=== PATIENT | female | born 1935 | race Caucasian/White ===

== ENCOUNTER 2023-07-28 13:41 | Outpatient (OUT) | payer MEDICARE, BC, SELFPAY ==
--- NOTE | 2023-07-28 14:30 | CA_ITS ---
Patient: RUTHANN MARISCAL Exam Date: 07/28/2023 : 1935 Gender:F Ordering : DR Daiana Palmer M.D. Admission #: [id number] Family : Order #: [id number] CLICK HERE TO VIEW EXAM ECHOCARDIOGRAM REPORT PROCEDURE: CA ECHO DOPPLER COMPLETE INDICATIONS: Edema, former smoker COMPARISON: None. DESCRIPTION: COMPLETE ECHOCARDIOGRAM Real-time transthoracic echocardiography with 2D, M-mode, spectral and color flow Doppler performed. QUALITY: Technically difficult due to patients condition. 55 175# LEFT VENTRICLE: Normal chamber size. Normal left ventricular wall thickness. Normal systolic function. LV EF: Normal left ventricular ejection fraction, (55%). DIASTOLIC: Grade II diastolic dysfunction. ATRIAL SEPTUM: Visually appears intact. LEFT ATRIUM: Moderate dilatation. RIGHT ATRIUM: Normal chamber size. RIGHT VENTRICLE: Normal chamber size. Normal right ventricular systolic function. TRICUSPID VALVE: Normal mobility and thickness. No stenosis with trivial regurgitation. Unable to assess right-sided pressures due to lack of measurable tricuspid regurgitation. MITRAL VALVE: Mildly thickened with normal mobility. No evidence of mitral valve stenosis. Mild mitral annular calcification. Mild mitral regurgitation. AORTIC VALVE: Normal trileaflet appearance. Moderately calcified aortic valve. Mildly diminished mobility. Doppler velocity suggest moderate aortic valve stenosis. DVI 0.3, MICHAEL 1.0 cm2, mean gradient 17 mmHg. No aortic regurgitation. AORTIC ROOT: Normal diameter and appearance. PULMONIC VALVE: Not well visualized. No stenosis. No regurgitation. PERICARDIUM: Anterior free space, effusion versus fat pad. IVC: IVC is normal in size with no inspiratory collapse. PLEURA: CONCLUSION: 1. Normal ventricular systolic function. LVEF is 55%. 2. Grade 2 diastolic dysfunction. 3. Moderate aortic valve stenosis. 4. Mild mitral regurgitation. 5. Anterior free space, infusion versus fat pad. 6. Technically difficult study with poor sound transmission. Adult Echocardiography Procedure Report Left Ventricle LVEDD (3.7 - 5.6 cm): 4.88 cm LVESD (2.2 - 4.0 cm): 3.03 cm LVIVS thickness (0.6 - 1.2 cm): 0.95 cm LVPW thickness (0.5 - 1.0 cm): 0.86 cm e': 0.05 m/s E - e': 21.76 LVOT Max Gradient: 3.65 mm[Hg], 3.21 mm[Hg] LVOT Area (cm2): 0.90 m/s, 0.95 m/s Peak Velocity (LVOT): 0.90 m/s, 0.95 m/s Mean Velocity (LVOT): 0.62 m/s LVOT Diameter 1.82 cm Left Atrium LA Volume Index (2D A2C): 46.91 ml/m2 Left Atrium Systolic Dimension: 3.30 cm Mitral Valve MV E to A Ratio: 1.06 Mitral Valve A-Wave Peak Velocity: 1.04 m/s Mitral Valve E-Wave Peak Velocity: 1.11 m/s Right Ventricle Aorta AO Root Diam: 2.88 cm Ascending Ao Diam: 2.90 cm Aortic Valve AoV Area (Peak Ritesh): 0.84 cm2, 0.84 cm2, 0.90 cm2, 0.90 cm2 AoV Area (VTI): 1.03 cm2, 1.03 cm2 Peak Velocity(Antegrade Flow): 2.77 m/s Peak Gradient(Antegrade Flow): 30.60 mm[Hg] Mean Velocity(Antegrade Flow): 1.97 m/s Mean Gradient(Antegrade Flow): 17.03 mm[Hg] Velocity Time Integral: 62.57 cm Tricuspid Valve Pulmonic Valve Peak Velocity: 0.84 m/s Peak Gradient: 2.82 mm[Hg] Right Atrium Dictated by: Reed Braxton M.D. on 07/28/2023 at 19:00 Approved by: Reed Braxton M.D. on 07/28/2023 at 19:06
[2023-07-28 14:37] LABS: Basophils Absolute Auto 0.1 10^3/uL (0.0-0.1); Basophils Percent Auto 0.7 % (0.2-2.0); Eosinophils Absolute Auto 0.5 10^3/uL (0.0-0.7); Eosinophils Percent Auto 5.2 % (0.9-7.0); Hematocrit 39.8 % (36.0-48.0); Hemoglobin 12.7 g/dL (12.0-16.0); Immature Granulocytes Abs Auto 0.03 10^3/uL (0.00-0.03); Immature Granulocytes Pct Auto 0.3 % (0.0-0.5); Lymphocytes Absolute Auto 1.9 10^3/uL (1.2-3.8); Lymphocytes Percent Auto 19.8 % (20.5-60.0); Mean Corpuscular HGB Conc 31.9 g/dL (29.9-35.2); Mean Corpuscular Hemoglobin 30.2 pg (26.7-34.0); Mean Corpuscular Volume 94.8 fL (81.0-99.0); Mean Platelet Volume 9.8 fL (9.5-13.5); Monocytes Absolute Auto 0.6 10^3/uL (0.3-0.8); Monocytes Percent Auto 6.1 % (1.7-12.0); Neutrophils Absolute Auto 6.6 10^3/uL (1.4-6.5); Neutrophils Percent Auto 67.9 % (43.0-75.0); Platelet Count 278 10^3/uL (150-450); Red Cell Distribution Width 13.7 % (11.0-15.0); White Blood Count 9.7 10^3/uL (4.0-11.0)
[2023-07-28 14:55] LABS: Estimated Average Glucose 169 mg/dL; Glycohemoglobin A1C 7.5 % (4.5-6.2)
[2023-07-28 15:10] LABS: Anion Gap 4.3; BUN Creatinine Ratio 21.2; Calcium 8.3 mg/dL (8.5-10.1); Carbon Dioxide 36.8 mmol/L (21.0-32.0); Chloride 104 mmol/L (98-107); Estimated GFR (African America >60 (>=60); Estimated GFR (Non-African Ame >60 (>=60); Glucose 137 mg/dL (74-106); Potassium 4.1 mmol/L (3.5-5.1); Sodium 141 mmol/L (136-145); Thyroid Stimulating Hormone 1.262 uIU/mL (0.358-3.740)
== END 2023-07-28 13:42 | disposition home or self-care (01) ==
LOC: CARD 13:41
PROVIDERS: PCP Family Medicine; Visit Provider Family Medicine
DX: E11.65 Type 2 diabetes mellitus with hyperglycemia (principal); R60.0 Localized edema; I51.89 Other ill-defined heart diseases; I08.0 Rheumatic disorders of both mitral and aortic valves
CPT/HCPCS: 36415; 80048; 83036; 84443; 85025; 93306

== ENCOUNTER 2023-08-18 14:20 | Inpatient (IN) | payer MEDICARE, BC, SELFPAY ==
[2023-08-18] VITALS (48 sets, daily range): BP systolic 118–200; BP diastolic 51–120; PULSE 65–92; RESP 7–28; TEMP 36.5; O2SAT 87–98; BMI 44.2; BMI 40.1
--- NOTE | 2023-08-18 14:23 | ECG_ITS ---
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
--- NOTE | 2023-08-18 14:30 | ED.CHESTPAI1 ---
HPI - Chest Pain General Chief Complaint: Shortness of Breath/Dyspnea Stated Complaint: CHEST PAIN, LOW OXYGEN Time Seen by Provider: 08/18/23 14:23 History of Present Illness HPI narrative: patient is in 87-year-old female to history of chronic obstructive pulmonary disease who presents to the emergency department from her welfare worker office. Patient was noted to have oxygen at eighty-six percent on room air in the office, she was being seen for routine chronic obstructive pulmonary disease follow-up. She does not wear home oxygen. Her welfare worker, Dr. Weber, was concerned about complaint of upper abdominal/lower chest pain in a bandlike distribution across the lower ribs that has been present intermittently for several months. Patient denies fevers, vomiting, diarrhea. She has had an increase in swelling to her lower extremities for the last several weeks, she was recently taken off of her metformin by her PCP for this. No medications given prior to arrival. She was referred to the Emergency Room to rule out PE. Related Data Allergies Allergy/AdvReac Type Severity Reaction Status Date / Time No Known Drug Allergies Allergy Verified 08/18/23 14:33 Review of Systems ROS Constitutional Denies: fever or chills Ears, nose, mouth, and throat Denies: throat pain or neck pain Cardiovascular Reports: chest pain and swelling of feet/ankles Respiratory Reports: shortness of breath and cough Gastrointestinal Denies: nausea or vomiting Musculoskeletal Denies: back pain Integumentary/Breast Denies: rash Neurological Denies: headache Hematologic/Lymphatic Denies: easy bruising PFSH PFSH Social History Smoking status: Former smoker Exam Narrative Exam Narrative: Gen.: Awake, alert, in no distress Head: Normocephalic, atraumatic ENT: Moist mucous membranes Respiratory: No respiratory distress, lungs diminished globally Cardio: Regular rate and rhythm Gastrointestinal: Abdomen is soft, nondistended and nontender to palpation Extremities: Moves extremities equally, 1+ pitting edema to the bilateral lower extremities Psych: Normal mood and affect Neuro: No focal neuro deficit Skin: Warm, dry, intact Constitutional Vital Signs, click to edit/add: Last Vital Signs Temp 97.7 F 08/18/23 14:26 Pulse 81 08/18/23 16:37 Resp 23 08/18/23 16:37 BP 140/70 08/18/23 16:31 Pulse Ox 96 08/18/23 16:40 O2 Del Method Nasal Cannula 08/18/23 16:40 O2 Flow Rate 3 08/18/23 16:40 Course Vital Signs Vital signs: Vital Signs Temperature 97.7 F 08/18/23 14:26 Pulse Rate 91 H 08/18/23 14:26 Respiratory Rate 22 08/18/23 14:26 Blood Pressure 172/90 H 08/18/23 14:26 Pulse Oximetry 87 L 08/18/23 14:26 Oxygen Delivery Method Room Air 08/18/23 14:26 Temperature 97.7 F 08/18/23 14:26 Pulse Rate 81 08/18/23 16:37 Respiratory Rate 23 08/18/23 16:37 Blood Pressure 140/70 08/18/23 16:31 Pulse Oximetry 96 08/18/23 16:40 Oxygen Delivery Method Nasal Cannula 08/18/23 16:40 Oxygen Delivery Flow Rate 3 08/18/23 16:40 MDM - Chest Pain MDM Narrative Medical decision making narrative: patient was treated with morphine, Zofran, aspirin in the Emergency Room. No significant EKG changes noted. Lab studies including BNP, troponin are within normal limits. Patient was sent for CT angiogram of the chest with no evidence of PE. Discussed these results with the patient, discussed the need for ambulation with pulse oximetry to determine if she can safely be discharged home. Patient was removed from oxygen by nasal cannula, she was only able to ambulate one to two steps before her oxygen levels dropped to 78% on room air. She will be admitted to hospitalist for chronic obstructive pulmonary disease exacerbation. Solu-Medrol and breathing treatment given prior to admission. Blood pressure has improved. Medical Records Data Attestation: I reviewed the patient's medical records. Lab Data Attestation: I reviewed the patient's lab results. Labs: Lab Results 08/18/23 Range/Units 14:37 WBC 11.1 H (4.0-11.0) 10^3/uL RBC 4.47 (4.20-5.40) 10^6/uL Hgb 13.5 (12.0-16.0) g/dL Hct 41.7 (36.0-48.0) % MCV 93.3 (81.0-99.0) fL MCH 30.2 (26.7-34.0) pg MCHC 32.4 (29.9-35.2) g/dL RDW 13.5 (11.0-15.0) % Plt Count 270 (150-450) 10^3/uL MPV 10.1 (9.5-13.5) fL Neut % (Auto) 69.9 (43.0-75.0) % Lymph % (Auto) 18.5 L (20.5-60.0) % [place] % (Auto) 6.4 (1.7-12.0) % Eos % (Auto) 4.4 (0.9-7.0) % Baso % (Auto) 0.5 (0.2-2.0) % Neut # (Auto) 7.7 H (1.4-6.5) 10^3/uL Lymph # (Auto) 2.1 (1.2-3.8) 10^3/uL [place] # (Auto) 0.7 (0.3-0.8) 10^3/uL Eos # (Auto) 0.5 (0.0-0.7) 10^3/uL Baso # (Auto) 0.1 (0.0-0.1) 10^3/uL Abs Immat Gran (auto) 0.03 (0.00-0.03) 10^3/uL Imm/Tot Granulo (auto) 0.3 (0.0-0.5) % PT 9.8 (9.0-11.6) sec INR <0.93 APTT 24.4 (22.3-36.2) sec Sodium 140 (136-145) mmol/L Potassium 3.9 (3.5-5.1) mmol/L Chloride 102 (98-107) mmol/L Carbon Dioxide 34.0 H (21.0-32.0) mmol/L Anion Gap 7.9 BUN 17.0 (7.0-18.0) mg/dL Creatinine 0.88 (0.55-1.02) mg/dL Est GFR ( Amer) >60 (>=60) Est GFR (Non-Af Amer) >60 (>=60) BUN/Creatinine Ratio 19.3 Glucose 142 H (74-106) mg/dL Calcium 8.6 (8.5-10.1) mg/dL Total Bilirubin 0.6 (0.2-1.0) mg/dL AST 15 (15-37) U/L ALT 17 (14-59) U/L Alkaline Phosphatase 105 (46-116) U/L Troponin I High Sens 26.8 (4.0-51.3) pg/mL NT-Pro-B Natriuret Pep 325.0 (<=1800.0) pg/mL Total Protein 7.3 (6.4-8.2) g/dL Albumin 3.6 (3.4-5.0) g/dL Globulin 3.7 g/dL Albumin/Globulin Ratio 1.0 Amylase 14 L (25-115) U/L Lipase 21.0 (16.0-77.0) U/L Imaging Data CT scan - chest: Attestation: I have reviewed the pertinent imaging results. Radiologist's impression: Procedure: CT angio chest CT angio chest, 08/18/2023 3:20 PM EDT INDICATION: Hypoxia, chest pain, PE COMPARISON: Prior CT of the chest dated 01/09/2021 TECHNIQUE: Axial low-dose images of 1 millimeters are obtained from the thoracic outlet with contrast . 3-D MIP images were obtained. Dose reduction techniques were achieved by using automated exposure control and/or adjustment of mA and/or kV according to patient size and/or use of iterative reconstruction technique. FINDINGS: No endoluminal filling defect within the main pulmonary arteries, lobar and lobular branches is noted. There is no obvious right ventricle strain. There is no suspicious lung lesion. Bilateral dependent atelectasis is noted. Bilateral consolidation likely linear atelectasis. The central tracheobronchial tree is unremarkable. No mediastinal lymph node enlargement by size criteria is noted. No pleural or pericardial effusion is noted. The visualized portions of the solid abdominal organs are unremarkable. Bone: There is no suspicious osteolytic or osteoblastic lesion. IMPRESSION: No pulmonary embolus in the current study. Bilateral linear opacities in the bases likely atelectasis. Follow-up CT in 6 and is recommended to ensure stability. Electronically authenticated by: ASHOK RODRIGUEZ Date: 08/18/2023 15:48 ECG Data Attestation: I personally reviewed and interpreted this ECG as follows: (normal sinus rhythm at a rate of seventy-four, no acute ST elevation, no ectopy. EKG reviewed by attending physician) ECG interpretation date: 08/18/23 ECG interpretation time: 14:34 Discharge Plan Discharge Chief Complaint: Shortness of Breath/Dyspnea Patient Disposition: Admitted as Observation Time of Disposition Decision: 16:48 Referrals: Daiana Palmer MD [Primary Care Provider] - 1 week
[2023-08-18 14:46] LABS: Basophils Absolute Auto 0.1 10^3/uL (0.0-0.1); Basophils Percent Auto 0.5 % (0.2-2.0); Eosinophils Absolute Auto 0.5 10^3/uL (0.0-0.7); Eosinophils Percent Auto 4.4 % (0.9-7.0); Hematocrit 41.7 % (36.0-48.0); Hemoglobin 13.5 g/dL (12.0-16.0); Immature Granulocytes Abs Auto 0.03 10^3/uL (0.00-0.03); Immature Granulocytes Pct Auto 0.3 % (0.0-0.5); Lymphocytes Absolute Auto 2.1 10^3/uL (1.2-3.8); Lymphocytes Percent Auto 18.5 % (20.5-60.0); Mean Corpuscular HGB Conc 32.4 g/dL (29.9-35.2); Mean Corpuscular Hemoglobin 30.2 pg (26.7-34.0); Mean Corpuscular Volume 93.3 fL (81.0-99.0); Mean Platelet Volume 10.1 fL (9.5-13.5); Monocytes Absolute Auto 0.7 10^3/uL (0.3-0.8); Monocytes Percent Auto 6.4 % (1.7-12.0); Neutrophils Absolute Auto 7.7 10^3/uL (1.4-6.5); Neutrophils Percent Auto 69.9 % (43.0-75.0); Platelet Count 270 10^3/uL (150-450); Red Blood Count 4.47 10^6/uL (4.20-5.40); Red Cell Distribution Width 13.5 % (11.0-15.0); White Blood Count 11.1 10^3/uL (4.0-11.0)
[2023-08-18 15:01] LABS: Amylase 14 U/L (25-115)
[2023-08-18 15:03] LABS: Partial Thromboplastin Time 24.4 sec (22.3-36.2); Prothrombin Time 9.8 sec (9.0-11.6)
[2023-08-18 15:06] LABS: INR <0.93
[2023-08-18 15:10] LABS: Alanine Aminotransferase 17 U/L (14-59); Albumin Level 3.6 g/dL (3.4-5.0); Alkaline Phosphatase 105 U/L (46-116); Anion Gap 7.9; Aspartate Amino Transferase 15 U/L (15-37); BUN Creatinine Ratio 19.3; Bilirubin Total 0.6 mg/dL (0.2-1.0); Calcium 8.6 mg/dL (8.5-10.1); Chloride 102 mmol/L (98-107); Estimated GFR (African America >60 (>=60); Estimated GFR (Non-African Ame >60 (>=60); Globulin 3.7 g/dL; Glucose 142 mg/dL (74-106); Potassium 3.9 mmol/L (3.5-5.1); Sodium 140 mmol/L (136-145); Total Protein 7.3 g/dL (6.4-8.2); Troponin I High Sensitivity 26.8 pg/mL (4.0-51.3)
[2023-08-18] MEDS: MORPHINE SULFATE 2 MG/ML SYRINGE IV (15:14)
[2023-08-18] MEDS: ONDANSETRON PF 4 MG/2 ML VIAL IV (15:14)
[2023-08-18] MEDS: ASPIRIN 81 MG TAB.CHEW 162 MG PO (15:14)
--- NOTE | 2023-08-18 15:36 | CT_ITS ---
The [address] [address] Patient Name: RUTHANN MARISCAL MRN: [id number] date: 1935 Sex: F Assigned Patient Location: ER Current Patient Location: ER Accession/Order Number: [id number] Exam Date: 08/18/2023 15:20 Report Date: 08/18/2023 15:48 At the request of: JEANETTE PETER Procedure: CT angio chest CT angio chest, 08/18/2023 3:20 PM EDT INDICATION: Hypoxia, chest pain, PE COMPARISON: Prior CT of the chest dated 01/09/2021 TECHNIQUE: Axial low-dose images of 1 millimeters are obtained from the thoracic outlet with contrast . 3-D MIP images were obtained. Dose reduction techniques were achieved by using automated exposure control and/or adjustment of mA and/or kV according to patient size and/or use of iterative reconstruction technique. FINDINGS: No endoluminal filling defect within the main pulmonary arteries, lobar and lobular branches is noted. There is no obvious right ventricle strain. There is no suspicious lung lesion. Bilateral dependent atelectasis is noted. Bilateral consolidation likely linear atelectasis. The central tracheobronchial tree is unremarkable. No mediastinal lymph node enlargement by size criteria is noted. No pleural or pericardial effusion is noted. The visualized portions of the solid abdominal organs are unremarkable. Bone: There is no suspicious osteolytic or osteoblastic lesion. CT/CT angio chest IMPRESSION: No pulmonary embolus in the current study. Bilateral linear opacities in the bases likely atelectasis. Follow-up CT in 6 and is recommended to ensure stability. Electronically authenticated by: ASHOK RODRIGUEZ Date: 08/18/2023 15:48
[2023-08-18] MEDS: ALBUTEROL SULFATE 2.5 MG/3 ML VIAL NEB IH (16:37)
[2023-08-18] MEDS: METHYLPREDNISOLONE SOD SUCC PF 125 MG/2 ML VIAL IVP (16:45)
[2023-08-18] MEDS: ENOXAPARIN SODIUM 30 MG/0.3 ML SYRINGE SUBQ (21:10)
[2023-08-18] MEDS: NABUMETONE 500 MG TABLET 750 MG PO (21:12)
[2023-08-18] MEDS: DOXEPIN HCL 25 MG CAPSULE 100 MG PO (21:14)
[2023-08-18] MEDS: METHYLPREDNISOLONE SOD SUCC PF 125 MG/2 ML VIAL 60 MG IVP (21:15)
[2023-08-18] MEDS: PRAMIPEXOLE 1 MG TABLET 0.5 MG PO (21:16)
[2023-08-18 21:22] LABS: Glucometer 297 mg/dL (74-106)
[2023-08-18] MEDS: INSULIN ASPART 300 UNIT/3 ML PEN SUBQ (21:23)
[2023-08-18] MEDS: IPRATROPIUM/ALBUTEROL SULFATE 3 ML AMPUL.NEB IH (23:19)
[2023-08-19] VITALS (62 sets, daily range): BP systolic 112–157; BP diastolic 54–88; PULSE 70–106; RESP 14–20; TEMP 36.4–37.1; O2SAT 83–96
[2023-08-19 04:09] LABS: Basophils Percent Auto 0.2 % (0.2-2.0); Hemoglobin 13.3 g/dL (12.0-16.0); Immature Granulocytes Abs Auto 0.05 10^3/uL (0.00-0.03); Immature Granulocytes Pct Auto 0.5 % (0.0-0.5); Lymphocytes Absolute Auto 0.5 10^3/uL (1.2-3.8); Lymphocytes Percent Auto 5.4 % (20.5-60.0); Mean Corpuscular HGB Conc 31.7 g/dL (29.9-35.2); Mean Corpuscular Volume 94.6 fL (81.0-99.0); Mean Platelet Volume 10.3 fL (9.5-13.5); Monocytes Percent Auto 0.3 % (1.7-12.0); Neutrophils Absolute Auto 9.2 10^3/uL (1.4-6.5); Neutrophils Percent Auto 93.6 % (43.0-75.0); Platelet Count 254 10^3/uL (150-450); Red Blood Count 4.44 10^6/uL (4.20-5.40); Red Cell Distribution Width 13.4 % (11.0-15.0); White Blood Count 9.8 10^3/uL (4.0-11.0)
[2023-08-19 04:17] LABS: Anion Gap 6.8; BUN Creatinine Ratio 19.2; Calcium 8.5 mg/dL (8.5-10.1); Carbon Dioxide 34.5 mmol/L (21.0-32.0); Chloride 99 mmol/L (98-107); Estimated GFR (African America >60 (>=60); Estimated GFR (Non-African Ame 53 (>=60); Glucose 255 mg/dL (74-106); Potassium 4.3 mmol/L (3.5-5.1); Sodium 136 mmol/L (136-145)
[2023-08-19] MEDS: METHYLPREDNISOLONE SOD SUCC PF 125 MG/2 ML VIAL 60 MG IVP ×4 (04:18→21:09)
[2023-08-19] MEDS: IPRATROPIUM/ALBUTEROL SULFATE 3 ML AMPUL.NEB IH ×5 (07:18→23:39)
[2023-08-19 08:35] LABS: Glucometer 333 mg/dL (74-106)
[2023-08-19] MEDS: ATORVASTATIN CALCIUM 10 MG TABLET PO (08:52)
[2023-08-19] MEDS: DULOXETINE HCL 30 MG CAPSULE.DR PO (08:52)
[2023-08-19] MEDS: NABUMETONE 500 MG TABLET 750 MG PO ×2 (08:52→21:06)
[2023-08-19] MEDS: FUROSEMIDE 40 MG TABLET PO (08:53)
[2023-08-19] MEDS: DOXEPIN HCL 25 MG CAPSULE 50 MG PO (08:53)
[2023-08-19] MEDS: INSULIN ASPART 300 UNIT/3 ML PEN SUBQ ×5 (08:55→21:12)
--- NOTE | 2023-08-19 11:02 | RESP.RT ---
titrated down to 2L
--- NOTE | 2023-08-19 11:14 | PM.HP ---
H&P: HPI History of Present Illness Chief complaint: SOB, hypoxia Narrative: 87 y/o female with history of COPD to ER with SOB. C/o worsening SOB over past few days. Chest tight and hard to take deep breath. Mild cough. Afebrile. Seen by pulmologist and found SpO2 87% on room air and sent to ER. Placed on oxygen and given steroids and breathing treatments. Labs and UA normal. Chest x-ray negative. [place] better and attempted to ambulate on room air and SpO2 dropped to 78% and admitted. Started steroids and breathing treatments. Developed worsening hypoxia and up to 4 LPM this am. Feels better but still SOB and fatigue with exertion. Review of Systems ROS Constitutional Denies: fever, chills or night sweats Cardiovascular Denies: chest pain, palpitations or edema Respiratory Reports: shortness of breath, cough and wheezing Gastrointestinal Denies: abdominal pain, nausea, vomiting or diarrhea Genitourinary Denies: painful urination [facility] Medical History (Updated 08/18/23 @ 18:47 by Coco Smith) COPD (chronic obstructive pulmonary disease) ?J44.9 - Chronic obstructive pulmonary disease, unspecified (ICD-10) Hypoxia ?R09.02 - Hypoxemia (ICD-10) Neuropathy ?G62.9 - Polyneuropathy, unspecified (ICD-10) Surgical History (Updated 08/18/23 @ 18:36 by Coco Smith) H/O: hysterectomy ?Z90.710 - Acquired absence of both cervix and uterus (ICD-10) History of bladder suspension procedure ?Z98.890 - Other specified postprocedural states (ICD-10) ?Z87.448 - Personal history of other diseases of urinary system (ICD-10) Social History (Updated 08/18/23 @ 18:36 by Coco Smith) Within the past year, how often did you have a drink containing alcohol: monthly or less Smoking status: Former smoker Meds Home Medications and Allergies Home Medications Medication Instructions Recorded Confirmed Type albuterol sulfate 90 mcg/actuation 1 inh inhalation DAILY 08/18/23 08/18/23 History aerosol inhaler (Ventolin HFA) atorvastatin 10 mg tablet 10 mg PO DAILY 08/18/23 08/18/23 History doxepin 50 mg capsule 50 mg PO DAILY 08/18/23 08/18/23 History doxepin 50 mg capsule 100 mg PO .QHS 08/18/23 08/18/23 History duloxetine 30 mg capsule,delayed 30 mg PO DAILY 08/18/23 08/18/23 History release furosemide 40 mg tablet 40 mg PO DAILY 08/18/23 08/18/23 History nabumetone 750 mg tablet 750 mg PO BID 08/18/23 08/18/23 History pramipexole 0.5 mg tablet 0.5 mg PO .QHS 08/18/23 08/18/23 History Allergies Allergy/AdvReac Type Severity Reaction Status Date / Time No Known Drug Allergies Allergy Verified 08/18/23 14:33 Exam Constitutional Vital Signs, click to edit/add: Last Vital Signs Temp 97.5 F L 08/19/23 08:48 Pulse 98 H 08/19/23 10:57 Resp 20 08/19/23 04:00 BP 157/72 H 08/19/23 08:29 Pulse Ox 96 08/19/23 10:57 O2 Del Method Nasal Cannula 08/19/23 10:57 O2 Flow Rate 3 08/19/23 10:57 Documenting provider has reviewed patient's vital signs: yes Common normals: no apparent distress, oriented x3 and alert HENMT Common normals: normocephalic Eye Common normals: PERRL and EOMs intact bilaterally Respiratory Common normals: normal respiratory effort Auscultation: wheezes expiratory wheezes and diminished lung sounds Cardio Common normals: regular rate, regular rhythm, no gallops, no clicks and no rub GI Common normals: Normal to inspection, nondistended, normoactive bowel sounds present and non-tender Extremity Common normals: normal to inspection Results Labs Labs: Short CBC 08/18/23 08/19/23 Range/Units 14:37 03:59 WBC 11.1 H 9.8 (4.0-11.0) 10^3/uL Hgb 13.5 13.3 (12.0-16.0) g/dL Hct 41.7 42.0 (36.0-48.0) % Plt Count 270 254 (150-450) 10^3/uL BMP 08/18/23 08/19/23 14:37 03:59 Sodium 140 136 Potassium 3.9 4.3 Chloride 102 99 Carbon Dioxide 34.0 H 34.5 H BUN 17.0 19.0 H Creatinine 0.88 0.99 Glucose 142 H 255 H Calcium 8.6 8.5 Liver Function 08/18/23 Range/Units 14:37 Total Bilirubin 0.6 (0.2-1.0) mg/dL AST 15 (15-37) U/L ALT 17 (14-59) U/L Alkaline Phosphatase 105 (46-116) U/L Albumin 3.6 (3.4-5.0) g/dL Pulse Oximetry Attestation: I have reviewed the pertinent pulse oximetry results. Imaging Chest x-ray: Attestation: I have reviewed the pertinent imaging results. Assessment and Plan Assessment and Plan (1) Acute exacerbation of chronic obstructive pulmonary disease: (2) Acute hypoxic respiratory failure: (3) Type 2 diabetes mellitus with hyperglycemia: (4) Chronic heart failure with preserved ejection fraction: (5) Aortic stenosis: (6) Morbid obesity: Plan Continue antibiotics and breathing treatments. Wean O2 as tolerated. Start PT/OT for weakness. Will need at least 2 midnights in the hospital. Resume home medication.
--- NOTE | 2023-08-19 11:30 | CM.NOTE ---
Rounds made with Dr. Kerns, no discharge for pt today. PT and OT will evaluate pt. Changed pt to inpt status.
[2023-08-19 11:43] LABS: Glucometer 450 mg/dL (74-106)
--- NOTE | 2023-08-19 12:19 | CM.NOTE ---
Important Message From Medicare discussed with pt, pt verbalizes understanding and signs paper. Original given to pt and copy placed on pt's chart.
--- NOTE | 2023-08-19 13:44 | SWNOTE1 ---
SW met with pt to discuss dc needs. Pt does live at home with her son. He does still work, but he does all the hard work outside. Pt voiced she does still drive and is out and about. Pt has a cane, but does not always use it. Pt has a few steps in various places throughout the home. Pt voiced she has fallen a few times, but she has neuropathy as well. Pt does not wear home oxygen. SW and pt talked about working with therapy. Pt felt she did alright. SW let her know home health was recommended. Pt shook her head no and voiced she does not feel she needs it at this time. Pt voiced she does stay fairly active. At this time pt refusing HH. SW to follow as needed.
[2023-08-19 16:02] LABS: Glucometer 318 mg/dL (74-106)
[2023-08-19] MEDS: DOXEPIN HCL 25 MG CAPSULE 100 MG PO (21:05)
[2023-08-19] MEDS: PRAMIPEXOLE 1 MG TABLET 0.5 MG PO (21:07)
[2023-08-19] MEDS: ENOXAPARIN SODIUM 30 MG/0.3 ML SYRINGE SUBQ (21:08)
[2023-08-19 21:12] LABS: Glucometer 260 mg/dL (74-106)
[2023-08-20] VITALS (41 sets, daily range): BP systolic 130–141; BP diastolic 57–78; PULSE 88–96; RESP 14–20; TEMP 36.5–36.8; O2SAT 81–98
[2023-08-20 05:16] LABS: Basophils Percent Auto 0.1 % (0.2-2.0); Hematocrit 38.7 % (36.0-48.0); Immature Granulocytes Abs Auto 0.17 10^3/uL (0.00-0.03); Immature Granulocytes Pct Auto 0.8 % (0.0-0.5); Lymphocytes Absolute Auto 0.6 10^3/uL (1.2-3.8); Lymphocytes Percent Auto 2.7 % (20.5-60.0); Mean Corpuscular Hemoglobin 29.6 pg (26.7-34.0); Mean Corpuscular Volume 95.3 fL (81.0-99.0); Mean Platelet Volume 10.6 fL (9.5-13.5); Monocytes Absolute Auto 0.4 10^3/uL (0.3-0.8); Monocytes Percent Auto 1.9 % (1.7-12.0); Neutrophils Absolute Auto 20.2 10^3/uL (1.4-6.5); Neutrophils Percent Auto 94.5 % (43.0-75.0); Platelet Count 249 10^3/uL (150-450); Red Blood Count 4.06 10^6/uL (4.20-5.40); Red Cell Distribution Width 13.7 % (11.0-15.0); White Blood Count 21.4 10^3/uL (4.0-11.0)
[2023-08-20 05:31] LABS: Anion Gap 5.8; BUN Creatinine Ratio 26.8; Calcium 8.6 mg/dL (8.5-10.1); Carbon Dioxide 34.6 mmol/L (21.0-32.0); Chloride 99 mmol/L (98-107); Estimated GFR (African America 56 (>=60); Estimated GFR (Non-African Ame 46 (>=60); Glucose 265 mg/dL (74-106); Potassium 4.4 mmol/L (3.5-5.1); Sodium 135 mmol/L (136-145)
[2023-08-20] MEDS: METHYLPREDNISOLONE SOD SUCC PF 125 MG/2 ML VIAL 60 MG IVP (06:16)
[2023-08-20 08:33] LABS: Glucometer 229 mg/dL (74-106)
[2023-08-20] MEDS: AZITHROMYCIN 250 MG TABLET PO (09:14)
[2023-08-20] MEDS: DULOXETINE HCL 30 MG CAPSULE.DR PO (09:14)
[2023-08-20] MEDS: DOXEPIN HCL 25 MG CAPSULE 50 MG PO (09:14)
[2023-08-20] MEDS: INSULIN DETEMIR 300 UNIT/3 ML INSULN.PEN 15 UNIT SUBQ (09:14)
[2023-08-20] MEDS: ATORVASTATIN CALCIUM 10 MG TABLET PO (09:14)
[2023-08-20] MEDS: INSULIN ASPART 300 UNIT/3 ML PEN SUBQ ×4 (09:18→22:08)
[2023-08-20] MEDS: GUAIFENESIN 600 MG TAB.ER.12H PO ×2 (09:19→22:01)
[2023-08-20] MEDS: IPRATROPIUM/ALBUTEROL SULFATE 3 ML AMPUL.NEB IH ×4 (10:51→22:53)
--- NOTE | 2023-08-20 11:13 | PT.DAILY ---
Physical Therapy Daily Note PT Daily Note/Assess Start: 08/20/23 11:03 Freq: Status: Active Protocol: Document 08/20/23 11:03 JOSE (Rec: 08/20/23 11:08 [id number] Physical Therapy Daily Note/Assessment Time In/Time Out Time In 10:30 Time Out 10:45 Pain In Pain N/A Pain Out Pain N/A Subjective Subjective Pt supine upon arrival. Agrees to PT. Denies pain currently. Therapeutic Exercise Time Therapeutic Exercise Minutes (minutes) 3 Therapeutic Exercise Units 0 Therapeutic Exercise Treatment Therapeutic Exercise Treatment Seated AP, LAQ, and marches ( small range) 10x ea while sitting EOB. Therapeutic Activity Time Therapeutic Activity Minutes (minutes) 10 Therapeutic Activity Units 1 Therapeutic Activity Treatment Bed Mobility Ability Moderate Assist Therapeutic Activity Comments Pt requires ModA to reach sitting from supine - for both LEs and upper body. Once sitting EOB pt able to maintain static sitting balance unsupported for nearly 8 min. While sitting EOB pt performs seated LE ex 10x ea without LOB. Pt also attempts to help scoot her hips up towards head of bed - unable to does move hands and legs appropriately but is lacking strength. Pt requires ModA to transfer from sit>supine for upper body and legs. Pt Unable to assist to help scoot up bed - total assist for this. Pt remains supine with HOB elevated, pillow under legs and call light in reach. Total Physical Therapy Time Total Therapy Minutes 13 Total Physical Therapy Units 1 Summary Daily Note Summary Improved static/dynamic seated balance on this date. Edit Result 08/20/23 11:03 JOSE (Rec: 08/20/23 11:10 [facility] [id number] Physical Therapy Daily Note/Assessment Time In/Time Out Time In 10:01 Time Out 10:11 Subjective Subjective Pt sitting EOB upon arrival. agrees to PT. Therapeutic Activity Treatment Bed Mobility Ability Chair Transfer Ability Standby Assistance Therapeutic Activity Comments Performs 5x Sit>stand from EOB to RW without fatigue. Amb with RW 100' SBA with assist for O2 lines. Sit>supine SBA. Remains supine with call light in reach and needs met. Summary Daily Note Summary Pt goals met on this date. Planned dc to home. Edit Result 08/20/23 11:03 JOSE (Rec: 08/20/23 11:11 JOSE [id number]) Physical Therapy Daily Note/Assessment Therapeutic Activity Time Therapeutic Activity Minutes (minutes) 7 Total Physical Therapy Time Total Therapy Minutes 10
[2023-08-20] MEDS: PREDNISONE 20 MG TABLET 40 MG PO (11:36)
[2023-08-20] MEDS: FUROSEMIDE 40 MG/4 ML VIAL IVP (11:37)
[2023-08-20 11:46] LABS: Glucometer 277 mg/dL (74-106)
--- NOTE | 2023-08-20 12:20 | PM.IMPN1 ---
Progress Note: A&P Assessment and Plan (1) Respiratory failure with hypoxia: Assessment and Plan: Continues to be hypoxic. 80% on RA. Reponds well to O2 supplementation via NC. No resp distress noted. (2) Acute on chronic diastolic (congestive) heart failure: Assessment and Plan: Appears to have mild volume overload. Start on IV lasix 40 mg daily. Monitor I/O, daily weights. 2D ECHO 08/08 - shows diastolic dysfunction, mod . (3) Acute exacerbation of chronic obstructive pulmonary disease: Assessment and Plan: No wheezing today. No formal diagnosis of COPD. C/w duonebs, azithromycin and switch to PO prednisone due to hyperglycemia (4) Type 2 diabetes mellitus with hyperglycemia: Assessment and Plan: Poorly controlled due to systemic steroids. Added lantus 15 units. C/w sliding scale insulin. On oral hypoglycemic as outpatient. (5) Aortic stenosis: Assessment and Plan: Moderate on 2D ECHO alongwith diastolic HF. Being diuresed for acute on chronic diastolic HF. (6) Morbid obesity: Assessment and Plan: Morbidly obese. She will benefit from weight loss. Defer to PCP (7) Leukocytosis: Assessment and Plan: Suspect this is due to systemic steroids. No evidence of PNA on CXR Repeat CXR tomorrow morning. Monitor CBC Internal Medicine - PN: Subj Subjective Interval history: Seen and examined. Reports feeling better subjectively but still hypoxic and requiring O2. No overnight events Exam Constitutional Vital Signs, click to edit/add: Last Vital Signs Temp 98.2 F 08/20/23 04:10 Pulse 88 08/20/23 04:10 Resp 14 08/20/23 04:10 BP 130/78 08/20/23 04:10 Pulse Ox 95 08/20/23 10:55 O2 Del Method Nasal Cannula 08/20/23 10:55 O2 Flow Rate 3 08/20/23 10:55 Documenting provider has reviewed patient's vital signs: yes Common normals: no apparent distress and oriented x3 Nutritional appearance: obese HENMT Common normals: normocephalic and head/scalp atraumatic Head and scalp: normocephalic and atraumatic Eye Common normals: conjunctivae normal and no scleral icterus Conjunctiva: conjunctiva(e) normal Respiratory Common normals: normal respiratory effort Effort & inspection: able to speak in complete sentences Auscultation: crackles Laterality: bilateral in the lower lung [place] Cardio Common normals: regular rate, S1 normal heart sound and S2 normal heart sound Rate: regular rate Heart sounds: S1 normal and S2 normal GI Common normals: Normal to inspection, nondistended, normoactive bowel sounds present, soft to palpation, non-tender and no hepatosplenomegaly Palpation: soft and no hepatosplenomegaly Extremity General: edema (+1 b/l ) Neuro Common normals: oriented x3, moves all extremities and no focal motor deficits Psych Common normals: mental status grossly normal, denies hallucinations, denies homicidal ideation and denies suicidal ideation Internal Medicine - PN: Obj Da Labs Labs: Laboratory Results - last 24 hr 08/19/23 08/19/23 08/20/23 15:50 21:11 04:51 WBC 21.4 H RBC 4.06 L Hgb 12.0 Hct 38.7 MCV 95.3 MCH 29.6 MCHC 31.0 RDW 13.7 Plt Count 249 MPV 10.6 Neut % (Auto) 94.5 H Lymph % (Auto) 2.7 L [place] % (Auto) 1.9 Eos % (Auto) 0.0 L Baso % (Auto) 0.1 L Neut # (Auto) 20.2 H Lymph # (Auto) 0.6 L [place] # (Auto) 0.4 Eos # (Auto) 0.0 Baso # (Auto) 0.0 Abs Immat Gran (auto) 0.17 H Imm/Tot Granulo (auto) 0.8 H Sodium 135 L Potassium 4.4 Chloride 99 Carbon Dioxide 34.6 H Anion Gap 5.8 BUN 30.0 H Creatinine 1.12 H Est GFR ( Amer) 56 L Est GFR (Non-Af Amer) 46 L BUN/Creatinine Ratio 26.8 Glucose 265 H Calcium 8.6 POC Glucose 318 H 260 H 08/20/23 08/20/23 08:29 11:35 WBC RBC Hgb Hct MCV MCH MCHC RDW Plt Count MPV Neut % (Auto) Lymph % (Auto) [place] % (Auto) Eos % (Auto) Baso % (Auto) Neut # (Auto) Lymph # (Auto) [place] # (Auto) Eos # (Auto) Baso # (Auto) Abs Immat Gran (auto) Imm/Tot Granulo (auto) Sodium Potassium Chloride Carbon Dioxide Anion Gap BUN Creatinine Est GFR ( Amer) Est GFR (Non-Af Amer) BUN/Creatinine Ratio Glucose Calcium POC Glucose 229 H 277 H
--- NOTE | 2023-08-20 15:41 | RESP.RT ---
decreased to 2 LPM
[2023-08-20 16:42] LABS: Glucometer 250 mg/dL (74-106)
[2023-08-20] MEDS: PRAMIPEXOLE 1 MG TABLET 0.5 MG PO (22:01)
[2023-08-20] MEDS: ENOXAPARIN SODIUM 30 MG/0.3 ML SYRINGE SUBQ (22:01)
[2023-08-20] MEDS: DOXEPIN HCL 25 MG CAPSULE 100 MG PO (22:01)
[2023-08-20 22:06] LABS: Glucometer 389 mg/dL (74-106)
[2023-08-21] VITALS (33 sets, daily range): BP systolic 131–164; BP diastolic 60–142; PULSE 76–80; RESP 14–20; TEMP 36.6–36.8; O2SAT 83–96
[2023-08-21] MEDS: IPRATROPIUM/ALBUTEROL SULFATE 3 ML AMPUL.NEB IH ×3 (03:44→10:48)
[2023-08-21 05:30] LABS: Basophils Absolute Auto 0.1 10^3/uL (0.0-0.1); Basophils Percent Auto 0.3 % (0.2-2.0); Hematocrit 44.9 % (36.0-48.0); Hemoglobin 13.6 g/dL (12.0-16.0); Immature Granulocytes Abs Auto 0.22 10^3/uL (0.00-0.03); Immature Granulocytes Pct Auto 1.1 % (0.0-0.5); Lymphocytes Absolute Auto 1.3 10^3/uL (1.2-3.8); Lymphocytes Percent Auto 6.5 % (20.5-60.0); Mean Corpuscular HGB Conc 30.3 g/dL (29.9-35.2); Mean Corpuscular Hemoglobin 29.5 pg (26.7-34.0); Mean Corpuscular Volume 97.4 fL (81.0-99.0); Mean Platelet Volume 10.4 fL (9.5-13.5); Monocytes Percent Auto 5.2 % (1.7-12.0); Neutrophils Absolute Auto 16.8 10^3/uL (1.4-6.5); Neutrophils Percent Auto 86.9 % (43.0-75.0); Platelet Count 302 10^3/uL (150-450); Red Blood Count 4.61 10^6/uL (4.20-5.40); Red Cell Distribution Width 13.8 % (11.0-15.0); White Blood Count 19.3 10^3/uL (4.0-11.0)
[2023-08-21 05:36] LABS: Anion Gap 7.9; BUN Creatinine Ratio 34.3; Calcium 9.1 mg/dL (8.5-10.1); Carbon Dioxide 32.4 mmol/L (21.0-32.0); Chloride 98 mmol/L (98-107); Estimated GFR (African America >60 (>=60); Estimated GFR (Non-African Ame 51 (>=60); Glucose 161 mg/dL (74-106); Potassium 4.3 mmol/L (3.5-5.1); Sodium 134 mmol/L (136-145)
--- NOTE | 2023-08-21 06:00 | XR_ITS ---
The [address] [address] Patient Name: RUTHANN MARISCAL MRN: [id number] date: 1935 Sex: F Assigned Patient Location: ICU Current Patient Location: ICU Accession/Order Number: [id number] Exam Date: 08/21/2023 06:30 Report Date: 08/21/2023 08:15 At the request of: SHAIKH FANG Procedure: XR chest 1V PORTABLE CHEST X-RAY, 08/21/2023. HISTORY: Shortness of breath. COMPARISON: None. FINDINGS: Single view of the chest obtained. Heart size normal. There is streaky segmental atelectasis at the right lung base. There is some patchy airspace opacification at the left lung base, likely atelectasis. No pleural effusion. No pulmonary edema. No pneumothorax. XR/XR chest 1V IMPRESSION: Mild bibasilar atelectasis. Lungs otherwise clear. No pleural effusion or pneumothorax. Electronically authenticated by: REHAN MELISSA Date: 08/21/2023 08:15
--- NOTE | 2023-08-21 07:16 | RESP.RT ---
patient placed on 1 LPM NC and recovered quickly
[2023-08-21 08:48] LABS: Glucometer 159 mg/dL (74-106)
[2023-08-21] MEDS: DOXEPIN HCL 25 MG CAPSULE 50 MG PO (10:13)
[2023-08-21] MEDS: ATORVASTATIN CALCIUM 10 MG TABLET PO (10:13)
[2023-08-21] MEDS: PREDNISONE 20 MG TABLET 40 MG PO (10:14)
[2023-08-21] MEDS: DULOXETINE HCL 30 MG CAPSULE.DR PO (10:14)
[2023-08-21] MEDS: FUROSEMIDE 40 MG/4 ML VIAL IVP (10:14)
[2023-08-21] MEDS: AZITHROMYCIN 250 MG TABLET PO (10:15)
[2023-08-21] MEDS: GUAIFENESIN 600 MG TAB.ER.12H PO (10:19)
[2023-08-21 10:25] LABS: Glucometer 220 mg/dL (74-106)
[2023-08-21] MEDS: INSULIN DETEMIR 300 UNIT/3 ML INSULN.PEN 15 UNIT SUBQ (10:25)
[2023-08-21 11:38] LABS: Glucometer 222 mg/dL (74-106)
[2023-08-21] MEDS: INSULIN ASPART 300 UNIT/3 ML PEN SUBQ (12:24)
--- NOTE | 2023-08-21 12:27 | P.DS_ITS ---
DS: Providers Provider Date of admission: 08/19/23 09:36 Primary care physician: Daiana Palmer MD Consults: 08/18/23 18:24 Occupational Therapy Eval and Treat Routine Reason for consultation: Weakness Physical Therapy Eval and Treat Routine Reason for consultation: Weakness 08/20/23 10:40 Physical Therapy Eval and Treat Routine Reason for consultation: Weakness 08/20/23 10:41 Occupational Therapy Eval and Treat Routine Reason for consultation: Weakness Attending physician on discharge: Shaikh Diomedes Discharging clinician: Shaikh Diomedes Anticipated date of discharge: 08/21/23 DS: Diagnosis Discharge Diagnosis (1) Respiratory failure with hypoxia: Assessment and plan: On 1-2 L O2 now. Down from 4 L O 2 Doing well. Feels better. Discussed home O2, educated the patient on it. Answered her questions. Walk test to be done by RN. Anticipate that she will need O2 short term. Stable for d/c (2) Acute on chronic diastolic (congestive) heart failure: Assessment and plan: More or less euvolemic. Feels well. D/c on oral lasix. Asked patient to use lasix q12 for 3 days and then go back to her usual dose. Needs CBC, BMP before seeing PCP (3) Acute exacerbation of chronic obstructive pulmonary disease: Assessment and plan: Stable. No wheezing. Will d/c on ventolin as needed, PO prednisone x 3 days, azithromycin x 3 days (4) Type 2 diabetes mellitus with hyperglycemia: Assessment and plan: Will resume metformin. Defer to PCP for further care FSBS were poorly controlled but this could be due to systemic steroids too. (5) Aortic stenosis: Assessment and plan: Outpatien fu (6) Morbid obesity: Assessment and plan: Weight loss indicated and will help with overall health status. Could look into GLP agonists with hx of T2 DM to help with weight loss Defer to PCP (7) Leukocytosis: Assessment and plan: Trending down. Likely due to steroid use. Recheck in one week. DS: Summary Hospital Course Hospital Course: Patient presented with SOB, LE edema and was found to have acute resp failure with hypoxia sec to acute on chronic diastolic HF and possibly COPD exacerbation. She was treated with systemic steroids, IV lasix, inhaled bronchodilators, PO azithromycin. She improved clinically during the course of hospital stay, felt better with improvement in degree of hypoxia and O2 requirement. Patient stable for d/c on home O2 and was asked to f/u with PCP in one week. She was asked to use lasix 40 q12 for 3 days and then switch to once daily dosing. Patient was noted to have leukcoytosis and poorly controlled T2DM suspected to be due to systemic steroids. Will defer management of her T2DM to her PCP She will need CBC, BMP before appt with PCP Status at Discharge Functional status at discharge: independent ambulation Overall status at discharge: patient is progressing back to baseline Time Spent with Patient Time attestation: Total time spent providing and/or coordinating discharge services: Time spent: greater than 30 minutes Exam Constitutional Vital Signs, click to edit/add: Last Vital Signs Temp 97.9 F 08/21/23 11:00 Pulse 76 08/21/23 03:53 Resp 20 08/21/23 03:53 BP 161/78 H 08/21/23 11:19 Pulse Ox 94 L 08/21/23 11:19 O2 Del Method Nasal Cannula 08/21/23 10:55 O2 Flow Rate 1 08/21/23 10:55 Documenting provider has reviewed patient's vital signs: yes Common normals: no apparent distress and oriented x3 Nutritional appearance: obese HENMT Common normals: normocephalic and head/scalp atraumatic Head and scalp: normocephalic and atraumatic Eye Common normals: conjunctivae normal and no scleral icterus Conjunctiva: conjunctiva(e) normal Respiratory Common normals: normal respiratory effort and clear to auscultation bilaterally Effort & inspection: able to speak in complete sentences Cardio Common normals: regular rate, S1 normal heart sound and S2 normal heart sound Rate: regular rate Heart sounds: S1 normal and S2 normal GI Common normals: Normal to inspection, nondistended, normoactive bowel sounds present, soft to palpation, non-tender and no hepatosplenomegaly Palpation: soft and no hepatosplenomegaly Extremity General: edema (+1 b/l ) Neuro Common normals: oriented x3, moves all extremities and no focal motor deficits Psych Common normals: mental status grossly normal, denies hallucinations, denies homicidal ideation and denies suicidal ideation DS: Data Data Completed and Pending Labs on day of discharge: Labs from last 24 hours 08/21/23 08/21/23 08/21/23 11:35 10:22 08:45 WBC RBC Hgb Hct MCV MCH MCHC RDW Plt Count MPV Neut % (Auto) Lymph % (Auto) [place] % (Auto) Eos % (Auto) Baso % (Auto) Neut # (Auto) Lymph # (Auto) [place] # (Auto) Eos # (Auto) Baso # (Auto) Abs Immat Gran (auto) Imm/Tot Granulo (auto) Sodium Potassium Chloride Carbon Dioxide Anion Gap BUN Creatinine Est GFR ( Amer) Est GFR (Non-Af Amer) BUN/Creatinine Ratio Glucose Calcium POC Glucose 222 H 220 H 159 H 08/21/23 08/20/23 08/20/23 05:07 22:05 16:41 WBC 19.3 H RBC 4.61 Hgb 13.6 Hct 44.9 MCV 97.4 MCH 29.5 MCHC 30.3 RDW 13.8 Plt Count 302 MPV 10.4 Neut % (Auto) 86.9 H Lymph % (Auto) 6.5 L [place] % (Auto) 5.2 Eos % (Auto) 0.0 L Baso % (Auto) 0.3 Neut # (Auto) 16.8 H Lymph # (Auto) 1.3 [place] # (Auto) 1.0 H Eos # (Auto) 0.0 Baso # (Auto) 0.1 Abs Immat Gran (auto) 0.22 H Imm/Tot Granulo (auto) 1.1 H Sodium 134 L Potassium 4.3 Chloride 98 Carbon Dioxide 32.4 H Anion Gap 7.9 BUN 35.0 H Creatinine 1.02 Est GFR ( Amer) >60 Est GFR (Non-Af Amer) 51 L BUN/Creatinine Ratio 34.3 Glucose 161 H Calcium 9.1 POC Glucose 389 H 250 H Discharge Plan Discharge Disposition: Home, Self-Care Condition: Good Discharge Medications: New prednisone 20 mg tablet 20 mg PO DAILY 3 Days Qty: 3 0RF metformin 500 mg tablet 500 mg PO BID Qty: 60 0RF azithromycin 250 mg tablet 250 mg PO DAILY 3 Days Qty: 3 0RF Continued albuterol sulfate [Ventolin HFA] 90 mcg/actuation HFA aerosol inhaler 1 inh INHALATION DAILY atorvastatin 10 mg tablet 10 mg PO DAILY doxepin 50 mg capsule 50 mg PO DAILY duloxetine 30 mg capsule,delayed release(DR/EC) 30 mg PO DAILY furosemide 40 mg tablet 40 mg PO DAILY nabumetone 750 mg tablet 750 mg PO BID pramipexole 0.5 mg tablet 0.5 mg PO .QHS doxepin 50 mg capsule 100 mg PO .QHS Activity: increase activity as tolerated Diet: advance to your usual diet Forms: Portal Instructions Follow Up Appointments: PCP in one week Recheck CBC, BMP before appt with PCP. Uses lasix 40 q12 for 3 days and then go back to 40 mg daily
--- NOTE | 2023-08-24 12:31 | CM.NOTE ---
Called to ICU, pt had came in because she was unable to into contact with Sean. Sean has not come out to the home yet for oxygen set-up. Pt only has the tank she was discharged with. Called Sean, pt information given and her contact number. Sean patient access representative with contact pt today.
== END 2023-08-21 15:20 | disposition home or self-care (01) | DRG 189 ==
LOC: ER 16:48 → ICU 18:07
PROVIDERS: Family Medicine; Physician Assistant; Admitting Provider Internal Medicine; Emergency Provider Emergency Medicine; PCP Family Medicine; Visit Provider Internal Medicine
DX: J96.01 Acute respiratory failure with hypoxia (principal); I50.33 Acute on chronic diastolic (congestive) heart failure; J44.1 Chronic obstructive pulmonary disease with (acute) exacerbation; Z68.41 Body mass index [BMI] 40.0-44.9, adult; E11.65 Type 2 diabetes mellitus with hyperglycemia; E11.42 Type 2 diabetes mellitus with diabetic polyneuropathy; I35.0 Nonrheumatic aortic (valve) stenosis; E66.01 Morbid (severe) obesity due to excess calories; D72.829 Elevated white blood cell count, unspecified; R53.1 Weakness; Z90.710 Acquired absence of both cervix and uterus; Z87.891 Personal history of nicotine dependence; Z79.899 Other long term (current) drug therapy
CPT/HCPCS: 36415; 71045; 71275; 80048; 80053; 82150; 82948; 83690; 83880; 84484; 85025; 85610; 85730; 93005; 94640; 94667; 94668; 94761; 96372; 96374; 96375; 96376; 97161; 97165; 97530; 99285; G0378; J2930; Q9967

== ENCOUNTER 2023-08-24 11:42 | Outpatient (OUT) | payer MEDICARE, BC, SELFPAY ==
[2023-08-24 12:05] LABS: Basophils Absolute Auto 0.1 10^3/uL (0.0-0.1); Basophils Percent Auto 0.3 % (0.2-2.0); Eosinophils Absolute Auto 0.1 10^3/uL (0.0-0.7); Eosinophils Percent Auto 0.6 % (0.9-7.0); Hematocrit 47.6 % (36.0-48.0); Hemoglobin 15.5 g/dL (12.0-16.0); Immature Granulocytes Abs Auto 0.22 10^3/uL (0.00-0.03); Immature Granulocytes Pct Auto 1.1 % (0.0-0.5); Lymphocytes Absolute Auto 1.4 10^3/uL (1.2-3.8); Lymphocytes Percent Auto 6.8 % (20.5-60.0); Mean Corpuscular HGB Conc 32.6 g/dL (29.9-35.2); Mean Corpuscular Hemoglobin 29.8 pg (26.7-34.0); Mean Corpuscular Volume 91.5 fL (81.0-99.0); Mean Platelet Volume 10.6 fL (9.5-13.5); Monocytes Absolute Auto 0.5 10^3/uL (0.3-0.8); Monocytes Percent Auto 2.3 % (1.7-12.0); Neutrophils Percent Auto 88.9 % (43.0-75.0); Platelet Count 316 10^3/uL (150-450); Red Cell Distribution Width 13.2 % (11.0-15.0); White Blood Count 20.3 10^3/uL (4.0-11.0)
[2023-08-24 12:18] LABS: Anion Gap 12.4; BUN Creatinine Ratio 31.1; Calcium 9.2 mg/dL (8.5-10.1); Carbon Dioxide 34.4 mmol/L (21.0-32.0); Chloride 97 mmol/L (98-107); Estimated GFR (African America 59 (>=60); Estimated GFR (Non-African Ame 49 (>=60); Glucose 181 mg/dL (74-106); Potassium 5.8 mmol/L (3.5-5.1); Sodium 138 mmol/L (136-145)
--- OUTSIDE RECORDS SUMMARY | 2023-10-04 14:04 | XMS_ITS | CCD ---
Author Name Unknown Address [address] [facility] [address] [place] [address] Organization [facility] Care Team Providers Care Nursing Education Specialist Name Role Phone Daiana Palmer Unavailable DAMIEN MOODY Admitting Unavailable DAMIEN MOODY Consulting Unavailable DAMIEN MOODY Attending Unavailable ESTELA, DR DAIANA Rg Primary Care Unavailable SHAY CHAVEZ Consulting Unavailable DR DAIANA PALMER Admitting Unavailable DR DAIANA PALMER Primary Care Unavailable DR DAIANA PALMER Consulting Unavailable ESTELA, DR DAIANA Rg Attending Unavailable Leonora Beckham Unavailable Medications Current Medications Medication Drug Class(es) Dates Sig (Normalized) Sig (Original) [id number] 200 actuat albuterol 0.09 mg/actuat metered dose inhaler (9 sources) beta2-Adrenergic Agonist take 1 puff(s) by inhalation every four hours as needed Ventolin HFA 108 (90 Base) MCG/ACT 1 puff as needed Inhalation every 4 hrs Active atorvastatin 10 mg oral tablet (9 sources) HMG-CoA Reductase Inhibitor take 1 tablet by mouth every twenty-four hours Atorvastatin Calcium 10 MG 1 tablet Orally Once a day for 30 days Active doxepin hydrochloride 50 mg oral capsule (9 sources) Tricyclic Antidepressant take 1 capsule by mouth in the morning, then take 2 capsules by mouth twice daily at bedtime Doxepin HCl 50 MG 1 cap am and 2 caps HS Orally twice a day Active DULoxetine 30 mg delayed release oral capsule (6 sources) Serotonin and Norepinephrine Reuptake Inhibitor take 1 capsule by mouth once daily DULoxetine HCl 30 MG TAKE 1 CAPSULE BY MOUTH EVERY DAY for 90 Active furosemide 40 mg oral tablet (9 sources) Loop Diuretic take 1 tablet by mouth once daily Furosemide 40 MG TAKE 1 TABLET BY MOUTH EVERY DAY for 90 Active take 1 tablet by faustino th every twenty-four hours Furosemide 20 MG 1 tablet Orally Once a day Active metFORMIN hydrochloride 500 mg oral tablet (2 sources) Biguanide take 1 tablet by mouth every twenty-four hours metFORMIN HCl 500 MG 1 tablet with a meal Orally Once a day Active nabumetone 750 mg oral tablet (9 sources) Nonsteroidal Anti-inflammatory Drug Nabumetone 750 MG as directed Orally Active potassium chloride 10 meq extended release oral tablet (9 sources) take 1 tablet by mouth every twelve hours Potassium Chloride ER 10 MEQ 1 tablet with food Orally Twice a day Active pramipexole dihydrochloride 0.5 mg oral tablet (9 sources) Nonergot Dopamine Agonist take 1 tablet by mouth every twenty-four hours Pramipexole Dihydrochloride 0.5 MG 1 tablet Orally Once a day Active Problems Problem Classification Problem Date Documented Date Episodic/Chronic Chronic obstructive pulmonary disease and bronchiectasis (14 sources) Simple chronic bronchitis; Translations: [Simple chronic bronchitis] Onset: 02-12-2023 Chronic Congestive heart failure; nonhypertensive (8 sources) Chronic systolic heart failure; Translations: [Chronic systolic (congestive) heart failure] Chronic Diabetes mellitus with complications (20 sources) Type 2 diabetes mellitus; Translations: [Type 2 diabetes mellitus with hyperglycemia] Onset: 02-08-2023 Chronic Essential hypertension (6 sources) Essential hypertension; Translations: [Essential (primary) hypertension] Chronic Heart valve disorders (7 sources) Nonrheumatic aortic (valve) stenosis; Translations: [Moderate aortic stenosis] Chronic Noninfectious gastroenteritis (1 source) Noninfective gastroenteritis and colitis, unspecified Episodic Other nervous system disorders (15 sources) Polyneuropathy; Translations: [Other specified polyneuropathies] Chronic Other nervous system disorders (1 source) Other specified polyneuropathies Chronic Spondylosis; intervertebral disc disorders; other back problems (1 source) Spinal stenosis, lumbar region without neurogenic claudication Episodic Results Test Name Value Interpretation Reference Range Facil ity GLYCOHEMOGLOBIN A1Con 2022 ADA RECOMMENDATION SEE BELOW Normal [facility] Comment on above: Result Comment: ADA RECOMMENDED LIMIT 4.0 - 6.0 ADA THERAPEUTIC TARGET < 7.0 ACTION SUGGESTED > 7.0 Performed By: #### A 1C #### [facility] [address] [place] [address] Dr. Raj Joel Glucose [Mass/Vol] 163 mg/dL Normal [facility] Comment on above: Performed By: #### A 1C #### [facility] [address] [address] [address] Raj Joel HbA1c (Bld) [Mass fraction] 7.3 % Critically high 4.5 -6.2 [facility] Comment on above: Performed By: #### A 1C #### [facility] [address] [place] [address] Dr. Raj Joel PROF 14(COMP METB)on 023 Albumin [Mass/Vol] 3.2 g/dL Critically low 3.4-5.0 [facility] Comment on above: Performed By: #### C MP #### [facility] [address] [place] [address] Dr. Raj Joel Albumin/Globulin [Mass ratio] 0.8 {ratio} Normal [facility] Comment on above: Performed By: #### C MP #### [facility] [address] [place] [address] Dr. Raj Joel ALP [Catalytic activity/Vol] 101 U/L Normal 46-116 [facility] Comment on above: Performed By: #### C MP #### [facility] [address] [place] [address] Dr. Raj Joel ALT [Catalytic activity/Vol] 21 U/L Normal 14-59 [facility] Comment on above: Performed By: #### C MP #### [facility] [address] [place] [address] Dr. Raj Joel Anion gap [Moles/Vol] 9.6 mmol/L Normal [facility] Comment on above: Performed By: #### C MP #### [facility] [address] [address] [address] Raj Joel AST [Catalytic activity/Vol] 12 U/L Critically low 15- 37 [facility] Comment on above: Performed By: #### C MP #### [facility] [address] [place] [address] Dr. Raj Joel Bilirubin [Mass/Vol] 0.4 mg/dL Normal 0.2-1.0 [facility] Comment on above: Performed By: #### C MP #### [facility] [address] [address] [address] Raj Joel Calcium [Mass/Vol] 9.4 mg/dL Normal 8.5-10.1 [facility] Comment on above: Performed By: #### C MP #### [facility] [address] [address] [address] Raj Joel Chloride [Moles/Vol] 105 mmol/L Normal 98-107 [facility] Comment on above: Performed By: #### C MP #### [facility] [address] [address] [address] Raj Joel CO2 [Moles/Vol] 33.9 mmol/L Critically high 21.0-32.0 [facility] Comment on above: Performed By: #### C MP #### [facility] [address] [address] [address] Raj Joel Creatinine [Mass/Vol] 0.85 mg/dL Normal 0.55-1.02 [facility] Comment on above: Performed By: #### C MP #### [facility] [address] [address] [address] Raj Joel EGFR-AF FINNISH >60 Normal >=60 [facility] Comment on above: Performed By: #### C MP #### [facility] [address] [address] [address] Raj Joel EGFR-NON AF FINNISH >60 Normal >=60 [facility] Comment on above: Performed By: #### C MP #### [facility] [address] [address] [address] aRj Joel Globulin (S) [Mass/Vol] 4.1 g/dL Normal [facility] Comment on above: Performed By: #### C MP #### [facility] [address] [address] [address] Raj Joel Glucose [Mass/Vol] 119 mg/dL Critically high 74-106 [facility] Comment on above: Performed By: #### C MP #### [facility] [address] [address] [address] Raj Joel Potassium [Moles/Vol] 4.5 mmol/L Normal 3.5-5.[address] [facility] Comment on above: Performed By: #### C MP #### [facility] [address] [address] [address] Raj Joel Protein [Mass/Vol] 7.3 g/dL Normal 6.4-8.2 [facility] Comment on above: Performed By: #### C MP #### [facility] [address] [address] [address] Raj Joel Sodium [Moles/Vol] 144 mmol/L Normal 136-145 [facility] Comment on above: Performed By: #### C MP #### [facility] [address] [address] [address] Raj Joel Urea nitrogen [Mass/Vol] 21.0 mg/dL Critically high 7.0-18 .0 [facility] Comment on above: Performed By: #### C MP #### [facility] [address] [address] [address] Raj Joel Urea nitrogen/Creatinine [Mass ratio] 24.7 mg/mg Normal [facility] Comment on above: Performed By: #### C MP #### [facility] [address] [address] [address] Raj Joel Vital Signs Date Time Vital Sign Value Performing Clinician Facility 09-05-2023 11:45-0500 Body height 139.7 cm Daiana Palmer Other [facility] Other 09-05-2023 11:45-0500 Body mass index (BMI) [Ratio] 39.28 kg/m2 Daiana Palmer Other [facility] Other 09-05-2023 11:45-0500 Body weight 76.66 kg Daiana Palmer Other [facility] Other 09-05-2023 11:45-0500 Diastolic blood pressure 80 mm[Hg] Daiana Palmer Other [facility] Other 09-05-2023 11:45-0500 Systolic blood pressure 142 mm[Hg] Daiana Palmer Other [facility] Other 02-08-2023 15:39-0400 Body height 139.7 cm Daiana Palmer Other [facility] Other 12-27-2022 15:00-0400 Body height 139.7 cm Daiana Palmer Other [facility] Other 12-27-2022 15:00-0400 Body mass index (BMI) [Ratio] 40.67 kg/m2 Daiana Palmer Other [facility] Other 12-27-2022 15:00-0400 Body weight 79.38 kg Daiana Palmer Other [facility] Other 12-27-2022 15:00-0400 Diastolic blood pressure 78 mm[Hg] Daiana Palmer Other [facility] Other 12-27-2022 15:00-0400 Systolic blood pressure 128 mm[Hg] Daiana Palmer Other [facility] Other Encounters Encounter Date Encounter Type Care Provider Facility Start: 09-14-2023 End: 09-14-2023 ambulatory Daiana Palmer Other [facility] Other Start: 09-14-2023 Telephone encounter Daiana Palmer [facility] Start: 09-05-2023 End: 09-05-2023 ambulatory Daiana Palmer Other [facility] Other Start: 09-05-2023 Office outpatient vi sit 25 minutes Daiana Palmer [facility] Start: 08-24-2023 End: 08-24-2023 ambulatory Leonora Beckham Other [facility] Other Start: 08-24-2023 Telephone encounter Leonora HERRERA [facility] Start: 08-18-2023 End: 08-18-2023 ambulatory Daiana Palmer Other [facility] Other Start: 08-18-2023 Telephone encounter Daiana Palmer [facility] Start: 08-03-2023 End: 08-03-2023 ambulatory Daiana Palmer Other [facility] Other Start: 08-03-2023 Telephone encounter Daiana Palmer [facility] Start: 07-25-2023 End: 07-25-2023 ambulatory Daiana Palmer Other [facility] Other Start: 07-25-2023 Telephone encounter Daiana Palmer [facility] Start: 02-08-2023 End: 02-09-[address] DAIANA PALMER [facility] Other Start: 02-08-2023 Telephone encounter Daiana Palmer [facility] Start: 01-07-2023 End: 01-07-2023 ambulatory Daiana Palmer Other [facility] Other Start: 01-07-2023 Telephone encounter Daiana Palmer [facility] Start: 12-27-2022 End: 12-27-2022 ambulatory Daiana Palmer Other [facility] Other Start: 12-27-2022 Office outpatient ne w 30 minutes Daiana Palmer [facility] Payers Date Payer Category Payer [facility] [id number] 1960 Medicare [id number] [id number] 1934 Unknown [id number] 1934 Unknown [id number] Social History Date Type Detail Facility Unknown if ever smoked [facility] Other Sex Assigned At Sex Assigned At Bir th [facility] Other Evaluation note 09-14-2023 Note Date & Type Note Facility 09-14-2023 Evaluation note Encounter Date Diagnosis Assessment Notes Aug, Chronic systolic congestive heart failure (ICD-10 - I50.22) [facility] Other Evaluation note 09-05-2023 Note Date & Type Note Facility 09-05-2023 Evaluation note Encounter Date Diagnosis Assessment Notes Aug, Chronic systolic congestive heart failure (ICD-10 - I50.22) Pt had cancelled appt w Dr. Beckham, she was unsure what the referral was for. 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 She now agrees to see her and referral reinstated. Will scan in hospital documents for her review as well. She had a echo in the past month. Aug, Moderate aortic stenosis (ICD-10 - I35.0) as above Aug, COPD exacerbation (ICD-10 - J44.1) Pt now on O2. Keeping canisters in a wheeled backpack. Will followup w Dr. Weber on 09/14. [facility] Other Evaluation note 08-03-2023 Note Date & Type Note Facility 08-03-2023 Evaluation note Encounter Date Diagnosis Assessment Notes Jul, Chronic systolic congestive heart failure (ICD-10 - I50.22) Jul, Moderate aortic stenosis (ICD-10 - I35.0) [facility] Other Clinical Note 02-08-2023 Note Date & Type Note Facility 02-08-2023 Note PROCEDURE: XR CHEST 2 V DATE: 02/08/2023 1:07 PM CDT COMPARISONS: Chest CT from 01/09/2021 CLINICAL INDICATION: 87 years Female Chronic obstructive lung disease FINDINGS: The heart is mildly prominent and stable. There is slightly coarse increased interstitial markings throughout all lung strick[place] likely representing chronic lung changes, also seen on CT of 01/09/2021. There is no evidence of pleural effusion or pneumothorax. IMPRESSION: Findings most consistent with chronic lung changes, stable from previous exam. Stable mild cardiac prominence. Electronically authenticated by: SHAY CHAVEZ Date: 2023-02-08 14:[address] [facility] Evaluation note 02-08-2023 Note Date & Type Note Facility 02-08-2023 Evaluation note Encounter Date Diagnosis Assessment Notes Jan, Type 2 diabetes mellitus with hyperglycemia, unspecified whether snf insulin use (ICD-10 - E11.65) [facility] Other Evaluation note 12-27-2022 Note Date & Type Note Facility 12-27-2022 Evaluation note Encounter Date Diagnosis Assessment Notes Dec, Chronic diarrhea (ICD-10 - K52.9) Advise she hold metformin for 2 weeks and monitor results. Discussed possible medications we could add, but would be best to eliminate unnecessary medicine and monitor labs. Dec, Type 2 diabetes mellitus with hyperglycemia, without long-term current use of insulin (ICD-10 - E11.65) We will obtain her lab work from 2021. Will order more labs for follow-up in February 2023. Dec, Other polyneuropathy (ICD-10 - G62.89) Continue present medication. Assume related to spinal stenosis versus diabetes. Dec, Simple chronic bronchitis (ICD-10 - J41.0) Established with Dr. Weber continue present medication. 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 [facility] Other Evaluation note Note Date & Type Note Facility Evaluation note No Information [facility] Other History general Narrative - Reported Note Date & Type Note Facility History general Narrative - Reported Type Medical History RLS Medical History Arthritis Medical History Diabetes Medical History Hyperlipidemia Medical History Anxiety Surgical History Total right shoulder surgery 20 05 Surgical History Total Left shoulder surgery 200 9 Surgical History Total right knee 1999 Surgical History Total left knee 2000 Surgical History Total abdominal hyst 1970 Surgical History Bladder suspension 1970 Surgical History Neck surgery, spurs 1974 Surgical History Right hand surgery 1994 [facility] Other History general Narrative - Reported Note Date & Type Note Facility History general Narrative - Reported Type Medical History RLS Medical History Arthritis Medical History Diabetes Medical History Hyperlipidemia Medical History Anxiety Surgical History Total right shoulder surgery 20 05 Surgical History Total Left shoulder surgery 200 9 Surgical History Total right knee 1999 Surgical History Total left knee 2000 Surgical History Total abdominal hyst 1970 Surgical History Bladder suspension 1970 Surgical History Neck surgery, spurs 1974 Surgical History Right hand surgery 1994 Hospitalization History [facility] 08/2023 [facility] [employer] Other Summary Purpose Family History No Family History Records Found Advance Directives No Advanced Directives Records Found Reason for Referral Reason * 09/23 [facility] - heart failure. 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.22) Referral Organization [facility] [employer] [facility] Referring Provider First Name Daiana Referring Provider Last Name Estela Referring Provider Specialty [facility] Referred Organization [facility] Referred Address [address] [facility] [address] [facility] [address], [place],[address] Referred Provider Specialty Cardiology Referral Priority Routine General Notes Mary Holman 01:24:39 PM >received today, attachments made, notes locked, referral faxed to [facility] Clinical Notes f: [id number] Reason *Waiting for appt Admitted for CHF at [facility], will get records. She cancelled appt w Dr. Leonora Beckham when she was d/c from hospital. (She was confused on followup) She agrees now to see her. 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.22) Referral Organization [facility] [employer] Referring Provider First Name Daiana Referring Provider Last Name Estela Referring Provider Specialty Family [facility] Referred Organization [facility] Cardiology Referred Provider Leonora Beckham Referred Address [address] [place] [address],[address] [place] [address],[place], [place],[id number] Referred Provider Specialty Cardiovascul ar Disease Referral Priority Routine General Notes Mary Holman 12:53:16 PM >received today, faxed P2P Reason *Waiting for appt Echo and last 2 OV - LE edema. 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.22) Referral Organization [facility] [employer] [facility] Referring Provider First Name Daiana Referring Provider Last Name Estela Referring Provider Specialty [facility] Referred Organization [facility] Cardiology Referred Provider Leonora Beckham Referred Address [address] [place] [address],[place], [place],[id number] Referred Provider Specialty Cardiovascul ar Disease Referral Priority Routine General Notes Mary Holman 01:17:28 PM >received today, sent P2P Additional Source Comments REASON FOR VISIT (unrecogniz ed section and content) new patient CHECK UPcheck on symptomsNo Informationrefillecho and labsRefillCARDIO UPDATETBHmessage INFORMATION SOURCE (unrecogn ized section and content) DATE CREATED AUTHOR 02/12/2023 [facility] FOR RECORDS PERTAINING TO PATIENTS WHO ARE OR HAVE BEEN ENROLLED IN A CHEMICAL DEPENDENCY/SUBSTANCEABUSE PROGRAM, SOME INFORMATION MAY BE OMITTED. This clinical summary was aggregated from multiple sources. Caution should be exercised in using it in the provision of clinical care. This summary normalizes information from multiple sources, and as a consequence, information in this document may materially change the coding, format and clinical context of patient data. In addition, data may be omitted in some cases. CLINICAL DECISIONS SHOULD BE BASED ON THE PRIMARY CLINICAL RECORDS. [facility] [employer] provides no warranty or guarantee of the accuracy or completeness of information in this document.
== END 2023-08-24 11:43 | disposition home or self-care (01) ==
LOC: LAB 11:44
PROVIDERS: PCP Family Medicine; Visit Provider Internal Medicine
DX: I50.33 Acute on chronic diastolic (congestive) heart failure (principal); D72.829 Elevated white blood cell count, unspecified
CPT/HCPCS: 36415; 80048; 85025

== ENCOUNTER 2023-11-08 12:42 | Outpatient (OUT) | payer MEDICARE, BC, SELFPAY ==
--- OUTSIDE RECORDS SUMMARY | 2023-11-08 12:47 | XMS_ITS | CCD ---
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 Role Phone Daiana Palmer Unavailable DAMIEN MOODY Admitting Unavailable DAMIEN MOODY Consulting Unavailable DAMEIN MOODY Attending Unavailable ESTELA, DR DAIANA Rg Primary Care Unavailable SHAY CHAVEZ Consulting Unavailable DR DAIANA PALMER Admitting Unavailable DR DAIANA PALMER Primary Care Unavailable ESTELA, DR DAIANA Rg Consulting Unavailable ESTELA, DR DAIANA Rg Attending Unavailable Leonora Beckham Unavailable ALPHONSO RESENDEZ Attending Unavailable Medications Current Medications Medication Drug Class(es) Dates Sig (Normalized) Sig (Original) [id number] 200 actuat albuterol 0.09 mg/actuat metered dose inhaler (11 sources) beta2-Adrenergic Agonist take 1 puff(s) by inhalation every four hours as needed Ventolin HFA 108 (90 Base) MCG/ACT 1 puff as needed Inhalation every 4 hrs Active atorvastatin 10 mg oral tablet (11 sources) HMG-CoA Reductase Inhibitor take 1 tablet by mouth every twenty-four hours Atorvastatin Calcium 10 MG 1 tablet Orally Once a day for 30 days Active doxepin hydrochloride 50 mg oral capsule (11 sources) Tricyclic Antidepressant take 1 capsule by mouth in the morning, then take 2 capsules by mouth twice daily at bedtime Doxepin HCl 50 MG 1 cap am and 2 caps HS Orally twice a day Active DULoxetine 30 mg delayed release oral capsule (8 sources) Serotonin and Norepinephrine Reuptake Inhibitor take 1 capsule by mouth once daily DULoxetine HCl 30 MG TAKE 1 CAPSULE BY MOUTH EVERY DAY for 90 Active furosemide 40 mg oral tablet (11 sources) Loop Diuretic take 1 tablet by mouth once daily Furosemide 40 MG TAKE 1 TABLET BY MOUTH EVERY DAY for 90 Active take 1 tablet by faustino th every twenty-four hours Furosemide 20 MG 1 tablet Orally Once a day Active metFORMIN hydrochloride 500 mg oral tablet (4 sources) Biguanide Start: 10-26-2023 take 1 tablet by mouth twice daily metFORMIN HCl 500 MG 1 tablet Orally twice daily for 90 days Oct, Active take 1 tablet by faustino th every twenty-four hours metFORMIN HCl 500 MG 1 tablet with a meal Orally Once a day Active nabumetone 750 mg oral tablet (11 sources) Nonsteroidal Anti-inflammatory Drug Nabumetone 750 MG as directed Orally Active potassium chloride 10 meq extended release oral tablet (11 sources) take 1 tablet by mouth every twelve hours Potassium Chloride ER 10 MEQ 1 tablet with food Orally Twice a day for 90 days Active pramipexole dihydrochloride 0.5 mg oral tablet (11 sources) Nonergot Dopamine Agonist take 1 tablet by mouth every twenty-four hours Pramipexole Dihydrochloride 0.5 MG 1 tablet Orally Once a day Active Problems Problem Classification Problem Date Documented Date Episodic/Chronic Chronic obstructive pulmonary disease and bronchiectasis (18 sources) Simple chronic bronchitis; Translations: [Simple chronic bronchitis] Onset: 02-12-2023 Chronic Congestive heart failure; nonhypertensive (10 sources) Chronic systolic heart failure; Translations: [Chronic systolic (congestive) heart failure] Chronic Diabetes mellitus with complications (20 sources) Type 2 diabetes mellitus; Translations: [Type 2 diabetes mellitus with hyperglycemia] Onset: 02-08-2023 Chronic Essential hypertension (8 sources) Essential hypertension; Translations: [Essential (primary) hypertension] Chronic Heart valve disorders (9 sources) Nonrheumatic aortic (valve) stenosis; Translations: [Moderate aortic stenosis] Chronic Noninfectious gastroenteritis (1 source) Noninfective gastroenteritis and colitis, unspecified Episodic Other nervous system disorders (19 sources) Polyneuropathy; Translations: [Other specified polyneuropathies] Chronic Other nervous system disorders (1 source) Other specified polyneuropathies Chronic Spondylosis; intervertebral disc disorders; other back problems (1 source) Spinal stenosis, lumbar region without neurogenic claudication Episodic Results Test Name Value Interpretation Reference Range Facil ity Orders Onlyon 10-21-2023 Orders Only [id number] Claribel Mariscal 1935 F Date Provider Department Center 10/21/2023 [facility] Family History Problem Relation Age of Onset Heart failure Mother Congenital heart disease Brother Other Brother Family Status - Relation Status Age at Mother Brother Normal [facility] GLYCOHEMOGLOBIN A1Con 2022 ADA RECOMMENDATION SEE BELOW Normal [facility] Comment on above: Result Comment: ADA RECOMMENDED LIMIT 4.0 - 6.0 ADA THERAPEUTIC TARGET < 7.0 ACTION SUGGESTED > 7.0 Performed By: #### A 1C #### [facility] [address] [place] [address] Dr. Raj Joel Glucose [Mass/Vol] 163 mg/dL Normal [facility] Comment on above: Performed By: #### A 1C #### [facility] [address] [place] [address] Dr. Raj Joel HbA1c (Bld) [Mass fraction] 7.3 % Critically high 4.5-6.2 [facility] Comment on above: Performed By: #### A 1C #### [facility] [address] [place] [address] Dr. Raj Joel PROF 14(COMP METB)on 023 Albumin [Mass/Vol] 3.2 g/dL Critically low 3.4-5.0 [facility] Comment on above: Performed By: #### C MP #### [facility] [address] [place] [address] Dr. Raj Joel Albumin/Globulin [Mass ratio] 0.8 {ratio} Normal [facility] Comment on above: Performed By: #### C MP #### [facility] [address] [place] [address] Dr. Raj Joel ALP [Catalytic activity/Vol] 101 U/L Normal 46-116 [facility] Comment on above: Performed By: #### C MP #### [facility] [address] [place] [address] Dr. Raj Joel ALT [Catalytic activity/Vol] 21 U/L Normal 14-59 [facility] Comment on above: Performed By: #### C MP #### [facility] [address] [place] [address] Dr. Raj Joel Anion gap [Moles/Vol] 9.6 mmol/L Normal [facility] Comment on above: Performed By: #### C MP #### [facility] [address] [address] [address] Raj Joel AST [Catalytic activity/Vol] 12 U/L Critically low 15-37 [facility] Comment on above: Performed By: #### C MP #### [facility] [address] [address] [address] Raj Joel Bilirubin [Mass/Vol] 0.4 mg/dL Normal 0.2-1.0 [facility] Comment on above: Performed By: #### C MP #### [facility] [address] [address] [address] Raj Joel Calcium [Mass/Vol] 9.4 mg/dL Normal 8.5-10.1 [facility] Comment on above: Performed By: #### C MP #### [facility] [address] [address] [address] Raj Joel Chloride [Moles/Vol] 105 mmol/L Normal 98-107 [facility] Comment on above: Performed By: #### C MP #### [facility] [address] [address] [address] Raj Joel CO2 [Moles/Vol] 33.9 mmol/L Critically high 21.0-32.0 [facility] Comment on above: Performed By: #### C MP #### [facility] [address] [address] [address] Raj Joel Creatinine [Mass/Vol] 0.85 mg/dL Normal 0.55-1.02 [facility] Comment on above: Performed By: #### C MP #### [facility] [address] [address] [address] Raj Joel EGFR-AF IVORIAN >60 Normal >=60 [facility] Comment on above: Performed By: #### C MP #### [facility] [address] [place] [address] Dr. Raj Joel EGFR-NON AF IVORIAN >60 Normal >=60 [facility] Comment on above: Performed By: #### C MP #### [facility] [address] [address] [address] Raj Joel Globulin (S) [Mass/Vol] 4.1 g/dL Normal [facility] Comment on above: Performed By: #### C MP #### [facility] [address] [address] [address] Raj Joel Glucose [Mass/Vol] 119 mg/dL Critically high 74-106 [facility] Comment on above: Performed By: #### C MP #### [facility] [address] [address] [address] Raj Joel Potassium [Moles/Vol] 4.5 mmol/L Normal 3.5-5.1 [facility] Comment on above: Performed By: #### C MP #### [facility] [address] [address] [address] Raj Joel Protein [Mass/Vol] 7.3 g/dL Normal 6.4-8.2 [facility] Comment on above: Performed By: #### C MP #### [facility] [address] [address] [address] Raj Joel Sodium [Moles/Vol] 144 mmol/L Normal 136-145 [facility] Comment on above: Performed By: #### C MP #### [facility] [address] [address] [address] Raj Joel Urea nitrogen [Mass/Vol] 21.0 mg/dL Critically high 7.0-18.0 [facility] Comment on above: Performed By: #### C MP #### [facility] [address] [address] [address] Raj Joel Urea nitrogen/Creatinine [Mass ratio] 24.7 mg/mg Normal [facility] Comment on above: Performed By: #### C MP #### [facility] [address] [address] [address] Raj Joel Vital Signs Date Time Vital Sign Value Performing Clinician Facility 09-05-2023 11:45-0500 Body height 139.7 cm Daiana Palmer Other [facility] Other 09-05-2023 11:45-0500 Body mass index (BMI) [Ratio] 39.28 kg/m2 Daiana Palmer Other [facility] Other 09-05-2023 11:45-0500 Body weight 76.66 kg Daiana Palmer Other [facility] Other 09-05-2023 11:45-0500 Diastolic blood pressure 80 mm[Hg] Daiana Palmer Other [facility] Other 09-05-2023 11:45-0500 Systolic blood pressure 142 mm[Hg] Daiana Palmer Other [facility] Other 02-08-2023 15:39-0400 Body height 139.7 cm Daiana Palmer Other [facility] Other 12-27-2022 15:00-0400 Body height 139.7 cm Daiana Palmer Other [facility] Other 12-27-2022 15:00-0400 Body mass index (BMI) [Ratio] 40.67 kg/m2 Daiana Palmer Other [facility] Other 12-27-2022 15:00-0400 Body weight 79.38 kg Daiana Palmer Other [facility] Other 12-27-2022 15:00-0400 Diastolic blood pressure 78 mm[Hg] Daiana Palmer Other [facility] Other 12-27-2022 15:00-0400 Systolic blood pressure 128 mm[Hg] Daiana Palmer Other [facility] Other Encounters Encounter Date Encounter Type Care Provider Facility Start: 11-01-2023 End: 11-01-2023 ambulatory Daiana Palmer Other [facility] Other Start: 11-01-2023 Telephone encounter Daiana Palmer [facility] Start: 10-26-2023 End: 10-26-2023 ambulatory Daiana Palmer Other [facility] Other Start: 10-26-2023 Telephone encounter Daiana Palmer [facility] Start: 10-21-2023 End: 10-21-2023 ambulatory [facility]PHONSO [facility] Start: 09-14-2023 End: 09-14-2023 ambulatory Daiana Palmer Other [facility] Other Start: 09-14-2023 Telephone encounter Daiana Palmer [facility] Start: 09-05-2023 End: 09-05-2023 ambulatory Daiana Palmer Other [facility] Other Start: 09-05-2023 Office outpatient visit 25 minutes Daiana Palmer [facility] Start: 08-24-2023 End: 08-24-2023 ambulatory Leonora Beckham Other [facility] Other Start: 08-24-2023 Telephone encounter Leonora Beckham [facility] Start: 08-18-2023 End: 08-18-2023 ambulatory Daiana Palmer Other [facility] Other Start: 08-18-2023 Telephone encounter Daiana Palmer [facility] Start: 08-03-2023 End: 08-03-2023 ambulatory Daiana Palmer Other [facility] Other Start: 08-03-2023 Telephone encounter Daiana Palmer [facility] Start: 07-25-2023 End: 07-25-2023 ambulatory Daiana Palmer Other [facility] Other Start: 07-25-2023 Telephone encounter Daiana Palmer [facility] Start: 02-08-2023 End: 02-09-[address] DAIANA PALMER [facility] Other Start: 02-08-2023 Telephone encounter Daiana Palmer [facility] Start: 01-07-2023 End: 01-07-2023 ambulatory Daiana Palmer Other [facility] Other Start: 01-07-2023 Telephone encounter Daiana Palmer [facility] Start: 12-27-2022 End: 12-27-2022 ambulatory Daiana Palmer Other [facility] Other Start: 12-27-2022 Office outpatient ne w 30 minutes Daiana Palmer [facility] Payers Date Payer Category Payer [facility] [id number] 1960 Medicare [id number] [id number] [id number] 1935 Unknown [id number] 1935 Unknown [id number] Social History Date Type Detail Facility Unknown if ever smoked [facility] Other Sex Assigned At Sex Assigned At Bir th [facility] Other Progress note 10-21-2023 Note Date & Type Note Facility 10-21-2023 Note New patient here to establish care. Ref from Dr. Palmer for chronic congestive heart failure. She denies chest pain. Has SOB (COPD on O2) and LE edema. She often gets water blisters on her LE. Was admitted to [facility] in Aug 2023 for respiratory failure. She thinks echo was done for CHF but report not found. Says her only issue is SOB. Review of Systems Cardiovascular: Positive for dyspnea on exertion. Respiratory: Positive for cough, shortness of breath and wheezing. Musculoskeletal: Positive for arthritis, back pain and myalgias. Neurological: Positive for light-headedness. All other systems reviewed and are negative. [facility] Evaluation note 09-14-2023 Note Date & Type Note Facility 09-14-2023 Evaluation note Encounter Date Diagnosis Assessment Notes Aug, Chronic systolic congestive heart failure (ICD-10 - I50.22) [facility] Other Evaluation note 09-05-2023 Note Date & [...] Will followup w Dr. Weber on 09/14. 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 [facility] Other Evaluation note Note Date & Type Note Facility Evaluation note No Information [employer] Other History general Narrative - Reported Note [...] 1974 Surgical History Right hand surgery 1994 [facility] Other History general Narrative - Reported Note [...] knee 2000 Surgical History Total abdominal hyst 1969 Surgical History Bladder suspension 1970 Surgical History Neck surgery, spurs 1974 Surgical History Right hand surgery 1994 Hospitalization History [facility] 08/2023 [facility] Other Summary Purpose Family History No Family History Records FoundNo Family History Records Found Advance Directives No Advanced Directives Records FoundNo Advanced Directives Records Found Reason for Referral Reason *FU 09/23 [facility] - heart failure. 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.22) Referral Organization [facility] [employer] [facility] Referring Provider First Name Daiana Referring Provider Last Name Estela Referring Provider Specialty [facility] [employer] Referred Organization [facility] Referred Address [address] [facility] Referred Provider Specialty Cardiology Referral Priority Routine General Notes Mary Holman 01:24:39 PM >received today, attachments made, notes locked, referral faxed to [facility] Clinical Notes f: [phone] Reason *Waiting for appt Admitted for CHF at [facility], will get records. She cancelled appt w Dr. Leonora Beckham when she was d/c from hospital. (She was confused on followup) She agrees now to see her. 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.22) Referral Organization [facility] [employer] [facility] Referring Provider First Name Daiana Referring Provider Last Name Estela Referring Provider Specialty [facility] [employer] Referred Organization [facility] Cardiology Referred Provider Leonora Beckham Referred Address [address] [place] [address],[facility] [address],[place], [id number] Referred Provider Specialty Cardiovascul ar Disease Referral Priority Routine General Notes Mary Holman 12:53:16 PM >received today, faxed P2P Reason *Waiting for appt Echo and last 2 OV - LE edema. 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.22) Referral Organization [facility] [employer] [facility] Referring Provider First Name Daiana Referring Provider Last Name Estela Referring Provider Specialty [facility] [employer] Referred Organization [facility] Cardiology Referred Provider Leonora Beckham Referred Address [address] [place] [address],[address],[place], [place],[id number] Referred Provider Specialty Cardiovascul ar Disease Referral Priority Routine General Notes Mary Holman 01:17:28 PM >received today, sent P2P Additional Source Comments REASON FOR VISIT (unrecogniz ed section and content) new patient CHECK UPcheck on symptomsNo Informationrefillecho and labsRefillCARDIO UPDATETBHmessagerefillRefill INFORMATION SOURCE (unrecogn ized section and content) DATE CREATED AUTHOR 02/12/2023 [facility] DATE CREATED AUTHOR AUTHOR'S ORGANIZ ATION 10/24/2023 [facility] FOR RECORDS PERTAINING TO PATIENTS WHO ARE [...] BE BASED ON THE PRIMARY CLINICAL RECORDS. [employer] provides no warranty or guarantee of the accuracy or completeness of information in this document.
== END 2023-11-08 12:43 | disposition home or self-care (01) ==
LOC: LAB 12:44
PROVIDERS: PCP Family Medicine
DX: I50.9 Heart failure, unspecified (principal)
CPT/HCPCS: 36415; 83880

== ENCOUNTER 2023-12-13 14:18 | Outpatient (OUT) | payer MEDICARE, BC, SELFPAY ==
[2023-12-13 15:11] LABS: Anion Gap 8.1; BUN Creatinine Ratio 22.2; Calcium 9.2 mg/dL (8.5-10.1); Carbon Dioxide 37.1 mmol/L (21.0-32.0); Chloride 101 mmol/L (98-107); Estimated GFR (African America >60 (>=60); Estimated GFR (Non-African Ame 59 (>=60); Glucose 86 mg/dL (74-106); Potassium 4.2 mmol/L (3.5-5.1); Sodium 142 mmol/L (136-145)
== END 2023-12-13 14:19 | disposition home or self-care (01) ==
LOC: LAB 14:21
PROVIDERS: PCP Family Medicine; Visit Provider Nurse Practitioner Family
DX: I50.32 Chronic diastolic (congestive) heart failure (principal)
CPT/HCPCS: 36415; 80048

== ENCOUNTER 2023-12-22 13:23 | Outpatient (OUT) | payer MEDICARE, BC, SELFPAY ==
--- NOTE | 2023-12-22 13:33 | XR_ITS ---
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 There is slight diffuse increase interstitial markings throughout all lung [place]. Given the history provided, this may represent a small amount of chronic interstitial fluid due to congestion. Alternatively it may represent a small amount of scattered atelectasis. The lungs are otherwise clear There is no evidence of pleural effusion or pneumothorax. XR/XR chest 2V IMPRESSION: Chest is stable from 08/21/2023. Electronically authenticated by: SHAY CHAVEZ Date: 12/22/2023 14:38
--- OUTSIDE RECORDS SUMMARY | 2023-12-22 13:49 | XMS_ITS | CCD ---
Author Name Unknown Address [address] [facility] [address] [place] [id number] Organization [facility] Care Team Providers Care Delivery Department Supervisor Name Role Phone Daiana Rothman Unavailable DAMIEN MOODY Admitting Unavailable DAMIEN MOODY Consulting Unavailable DAMIEN MOODY Attending Unavailable LORNA, DR DAIANA Rg Primary Care Unavailable SHAY CHAVEZ Consulting Unavailable DR DAIANA ROTHMAN Admitting Unavailable DR DAIANA ROTHMAN Primary Care Unavailable DR DAIANA ROTHMAN Consulting Unavailable LORNA, DR DAIANA Rg Attending Unavailable Leonora Beckham Unavailable ALPHONSO MARTIN Attending Unavailable SHEMAR PERRIN Attending Unavailable Medications Current Medications Medication Drug Class(es) Dates Sig (Normalized) Sig (Original) [id number] 200 actuat albuterol 0.09 mg/actuat metered dose [...] Onset: 02-12-2023 Chronic Congestive heart failure; nonhypertensive (12 sources) Chronic systolic heart failure; Translations: [Chronic systolic (congestive) heart failure] Onset: 11-23-2023 Chronic Diabetes mellitus with complications (20 sources) [...] Name Value Interpretation Reference Range Facil ity 37on 11-23-2023 37 *Alternate your lasix, take 1 tablet every other day and 2 tablets every other day *Have lab work done in 1-2 weeks *Take the antibiotic prescribed until it runs out. If the redness and warmth does not improve, follow-up with Dr. Rothman Normal [facility] Office Visiton 11-23-2023 Follow-up visit [id number] Mar Mariscaljeanne Rg 1935 Provider Department Center 11/23/2023 SHEMAR WEBBER CARD [facility] Family History Problem Relation Age of Onset Heart failure Mother Congenital heart disease Brother Other Brother Family Status - Relation Status Age at Mother Brother Level of Service:93783 [place] OFFICE/OUTPATIENT ESTABLISHED MOD MDM 30 MIN Reason for Visit and Comments: Congestive Heart Failure [127] Valve Disorder [3372] Normal [facility] Office Visiton 10-21-2023 Follow-up visit [id number] Mar Mariscaljeanne Rg 1935 Provider Department Center 10/21/2023 384Andrew-ALPHONSO MARTIN CARD [facility] Family History Problem Relation Age of Onset Heart failure Mother Congenital heart disease Brother Other Brother Family Status - Relation Status Age at Mother Brother Level of Service:91628 [place] OFFICE/OUTPATIENT NEW MODERATE MDM 45 MINUTES Normal [facility] Orders Onlyon 10-21-2023 Orders Only [id number] Mar Mariscaljeanne Rg 1935 Provider Department Center 10/21/2023 MICHAEL READ CARD [facility] Family History Problem Relation Age of Onset Heart failure Mother Congenital heart disease Brother Other Brother Family Status - Relation Status Age at Mother Brother Normal [facility] GLYCOHEMOGLOBIN A1Con 2022 ADA RECOMMENDATION SEE BELOW Normal [facility] Comment on above: Result Comment: ADA RECOMMENDED LIMIT 4.0 - 6.0 ADA THERAPEUTIC TARGET < 7.0 ACTION SUGGESTED > 7.0 Performed By: #### A 1C #### [facility] [address] [address] [address] Raj Joel Glucose [Mass/Vol] 163 mg/dL Normal [facility] Comment on above: Performed By: #### A 1C #### [facility] [address] [place], [place] [address] Dr. Raj Joel HbA1c (Bld) [Mass fraction] 7.3 % Critically high 4.5-6.2 [facility] Comment on above: Performed By: #### A 1C #### [facility] [address] [place] [address] Dr. Raj Joel PROF 14(COMP METB)on 023 Albumin [Mass/Vol] 3.2 g/dL Critically low 3.4-5.0 Th e [facility] Comment on above: Performed By: #### C MP #### [facility] [address] [place] [address] Dr. Raj Joel Albumin/Globulin [Mass ratio] 0.8 {ratio} Normal [facility] Comment on above: Performed By: #### C MP #### [facility] [address] [place] [address] Dr. Raj Joel ALP [Catalytic activity/Vol] 101 U/L Normal 46-116 [facility] Comment on above: Performed By: #### C MP #### [facility] [address] [place] [address] Dr. Raj Joel ALT [Catalytic activity/Vol] 21 U/L Normal 14-59 [facility] Comment on above: Performed By: #### C MP #### [facility] [address] [place] [address] Dr. Raj Joel Anion gap [Moles/Vol] 9.6 mmol/L Normal [facility] Comment on above: Performed By: #### C MP #### [facility] [address] [place] [address] Dr. Raj Joel AST [Catalytic activity/Vol] 12 U/L Critically low 15-37 [facility] Comment on above: Performed By: #### C MP #### [facility] [address] [place] [address] Dr. Raj Joel Bilirubin [Mass/Vol] 0.4 mg/dL Normal 0.2-1.0 [facility] Comment on above: Performed By: #### C MP #### [facility] [address] [place] [address] Dr. Raj Joel Calcium [Mass/Vol] 9.4 mg/dL Normal 8.5-10.1 [facility] Comment on above: Performed By: #### C MP #### [facility] [address] [place] [address] Dr. Raj Joel Chloride [Moles/Vol] 105 mmol/L Normal 98-107 [facility] Comment on above: Performed By: #### C MP #### [facility] [address] [place] [address] Dr. Raj Joel CO2 [Moles/Vol] 33.9 mmol/L Critically high 21.0-32.0 [facility] Comment on above: Performed By: #### C MP #### [facility] [address] [place] [address] Dr. Raj Joel Creatinine [Mass/Vol] 0.85 mg/dL Normal 0.55-1.02 [facility] Comment on above: Performed By: #### C MP #### [facility] [address] [place] [address] Dr. Raj Joel EGFR-AF LIBYAN >60 Normal >=60 [facility] Comment on above: Performed By: #### C MP #### [facility] [address] [place] [address] Dr. Raj Jole EGFR-NON AF LIBYAN >60 Normal >=60 [facility] Comment on above: Performed By: #### C MP #### [facility] [address] [place] [address] Dr. Raj Joel Globulin (S) [Mass/Vol] 4.1 g/dL Normal [facility] Comment on above: Performed By: #### C MP #### [facility] [address] [place] [address] Dr. Raj Joel Glucose [Mass/Vol] 119 mg/dL Critically high 74-106 [facility] Comment on above: Performed By: #### C MP #### [facility] [address] [place] [address] Dr. Raj Joel Potassium [Moles/Vol] 4.5 mmol/L Normal 3.5-5.1 [facility] Comment on above: Performed By: #### C MP #### [facility] [address] [address] [address] Raj Joel Protein [Mass/Vol] 7.3 g/dL Normal 6.4-8.2 [facility] Comment on above: Performed By: #### C MP #### [facility] [address] [address] [address] Raj Joel Sodium [Moles/Vol] 144 mmol/L Normal 136-145 [facility] Comment on above: Performed By: #### C MP #### [facility] [address] [address] [address] Raj Joel Urea nitrogen [Mass/Vol] 21.0 mg/dL Critically high 7.0-18.0 [facility] Comment on above: Performed By: #### C MP #### [facility] [address] [address] [address] Raj Joel Urea nitrogen/Creatinine [Mass ratio] 24.7 mg/mg Normal [facility] Comment on above: Performed By: #### C MP #### [facility] [address] [address] [address] Raj Joel Vital Signs Date Time Vital Sign Value Performing Clinician Facility 09-05-2023 11:45-0500 Body height 139.7 cm Daiana Rothman Other [employer] [facility] [employer] Other 09-05-2023 11:45-0500 Body mass index (BMI) [Ratio] 39.28 kg/m2 Daiana Rothman Other [email or web address] Other 09-05-2023 11:45-0500 Body weight 76.66 kg Daiana Rothman Other [email or web address] Other 09-05-2023 11:45-0500 Diastolic blood pressure 80 mm[Hg] Daiana Rothman Other [email or web address] Other 09-05-2023 11:45-0500 Systolic blood pressure 142 mm[Hg] Daiana Rothman Other [email or web address] Other 02-08-2023 15:39-0400 Body height 139.7 cm Daiana Rothman Other [email or web address] Other 12-27-2022 15:00-0400 Body height 139.7 cm Daiana Rothman Other [email or web address] Other 12-27-2022 15:00-0400 Body mass index (BMI) [Ratio] 40.67 kg/m2 Daiana Rothman Other [email or web address] Other 12-27-2022 15:00-0400 Body weight 79.38 kg Daiana Rothman Other [email or web address] Other 12-27-2022 15:00-0400 Diastolic blood pressure 78 mm[Hg] Diaana Rothman Other [email or web address] Other 12-27-2022 15:00-0400 Systolic blood pressure 128 mm[Hg] Daiana Rothman Other [email or web address] Other Encounters Encounter Date Encounter Type Care Provider Facility Start: 11-23-2023 End: 11-23-2023 ambulatory [facility] Start: 11-01-2023 End: 11-01-2023 ambulatory Daiana Rothman Other [email or web address] Other Start: 11-01-2023 Telephone encounter Daiana Rothman [facility] Start: 10-26-2023 End: 10-26-2023 ambulatory Daiana Rothman Other [email or web address] Other Start: 10-26-2023 Telephone encounter Daiana Rothman [facility] Start: 10-21-2023 End: 10-21-2023 ambulatory [facility] Start: 09-14-2023 End: 09-14-2023 ambulatory Daiana Rothman Other [email or web address] Other Start: 09-14-2023 Telephone encounter Daiana Lorna [facility] Start: 09-05-2023 End: 09-05-2023 ambulatory Daiana Rothman Other [email or web address] Other Start: 09-05-2023 Office outpatient visit 25 minutes Daiana Rothman [facility] Start: 08-24-2023 End: 08-24-2023 ambulatory Leonora Beckham Other [email or web address] Other Start: 08-24-2023 Telephone encounter Leonora HERRERA [facility] [employer] [facility] Start: 08-18-2023 End: 08-18-2023 ambulatory Daiana Rothman Other [email or web address] Other Start: 08-18-2023 Telephone encounter Daiana Lorna [facility] Start: 08-03-2023 End: 08-03-2023 ambulatory Daiana Rothman Other [email or web address] Other Start: 08-03-2023 Telephone encounter Daiana Lorna [facility] Start: 07-25-2023 End: 07-25-2023 ambulatory Daiana Rothman Other [email or web address] Other Start: 07-25-2023 Telephone encounter Daiana Rothman [facility] Start: 02-08-2023 End: 02-09-[address] DAIANA ROTHAMN [email or web address] Other Start: 02-08-2023 Telephone encounter Daiana Lorna [facility] Start: 01-07-2023 End: 01-07-2023 ambulatory Daiana Rothman Other [email or web address] Other Start: 01-07-2023 Telephone encounter Daiana Lorna [facility] Start: 12-27-2022 End: 12-27-2022 ambulatory Daiana Rothman Other [email or web address] Other Start: 12-27-2022 Office outpatient ne w 30 minutes Daiana Rothman [facility] Payers Date Payer Category Payer [facility] [id number] 1960 Medicare [id number] 1934 Unknown [id number] 1935 Unknown [id number] Social History Date Type Detail Facility Unknown if ever smoked [email or web address] Other Sex Assigned At Sex Assigned At Bir th [email or web address] Other Clinical Notes 12-27-2022 to 11-23-2023 Note Date & Type Note Facility 11-23-2023 Note Cardiovascular Medic [facility] SUBJECTIVE Chief Complaint Patient presents with Congestive Heart Failure Valve Disorder Claribel Mariscal is a 88 y.o. female here for follow-up. Her accompanied her. HPI PMHx: diastolic heart failure, moderate aortic stenosis, COPD on supplemental O2, chronic BLE edema, neuropathy, DM type II Patient here for 1 mo follow up CHF, aortic valve stenosis, and hyperlipidemia. BNP was drawn recently, but BMP was not. Denies chest pain. Says her LE edema and SOB remain unchanged from last month's visit. She turns 88 years old on Tuesday! She has overall been feeling well except for her leg swelling. She also has redness and warmth to the lower part of her legs. She denies any fevers/chills. After her last visit, Dr. Martin had changed her lasix from as needed to 40mg PO daily. She has FINK, this seems unchanged. She has a cough. She wears supplemental O2. She follows with pulmonary for her COPD. Denies CP, orthopnea, PND, palpitations, syncope. Patient Active Problem List Diagnosis Benign hypertensive heart disease with heart failure (CMS/[facility]) Diabetes mellitus type II, non insulin dependent ([facility]) Chronic diastolic heart failure ([facility]) Hyperlipidemia Nonrheumatic aortic valve stenosis Past Medical History: Diagnosis Date CHF (congestive heart failure) ([facility]) COPD (chronic obstructive pulmonary disease) ([facility]) Diabetes mellitus type II, non insulin dependent ([facility]) 11/30/2023 Heart valve disease Hyperlipidemia Family History Problem Relation Name Age of Onset Heart failure Mother Congenital heart disease Brother Other (cabg) Brother Social History Tobacco Use Smoking status: Former Types: Cigarettes Quit date: 1967 Years since quittin.1 Smokeless tobacco: Never Substance Use Topics Alcohol use: Yes Comment: occasional No Known Allergies ROS Cardiovascular: Positive for dyspnea on exertion. Respiratory: Positive for cough and shortness of breath. Musculoskeletal: Positive for falls. Neurological: Positive for light-headedness, loss of balance and numbness. All other systems reviewed and are negative. OBJECTIVE Visit Vitals BP 136/81 (BP Location: Left arm, Patient Position: Sitting) Pulse 83 Ht 1.397 m (4' 7 ) Wt 78.9 kg (174 lb) SpO2 94% BMI 40.44 kg/m??? Smoking Status Former BSA 1.75 m??? Medications: Current Outpatient Medications: atorvastatin (Lipitor) 10 mg tablet, 10 mg 1 (one) time each day., Disp: , Rfl: doxepin (SINEquan) 50 mg capsule, , Disp: , Rfl: DULoxetine (Cymbalta) [address] capsule, Take by mouth in the morning., Disp: , Rfl: furosemide (Lasix) 40 mg tablet, Take 40 mg by mouth in the morning., Disp: , Rfl: metFORMIN (Glucophage) 500 mg tablet, Take 500 mg by mouth in the morning and at bedtime., Disp: , Rfl: nabumetone (Relafen) 750 mg tablet, , Disp: , Rfl: potassium chloride CR (Klor-Con) 10 mEq ER tablet, Take 10 mEq by mouth in the morning., Disp: , Rfl: pramipexole (Mirapex) 0.5 mg tablet, , Disp: , Rfl: Ventolin HFA 90 mcg/actuation inhaler, , Disp: , Rfl: cephalexin (Keflex) 500 mg capsule, Take 1 capsule (500 mg) by mouth in the morning, at noon, and at bedtime for 7 days., Disp: 21 capsule, Rfl: 0 Physical Exam Vitals reviewed. Constitutional: Appearance: She is obese. She is ill-appearing. HENT: Head: Normocephalic and atraumatic. Right Ear: External ear normal. Left Ear: External ear normal. Eyes: Extraocular Movements: Extraocular movements intact. Conjunctiva/sclera: Conjunctivae normal. Pupils: Pupils are equal, round, and reactive to light. Neck: Vascular: No carotid bruit. Cardiovascular: Rate and Rhythm: Normal rate and regular rhythm. Pulses: Normal pulses. Heart sounds: Murmur heard. Pulmonary: Effort: Pulmonary effort is normal. Breath sounds: Normal breath sounds. Comments: Crackles bilat lower lobes Abdominal: General: Bowel sounds are normal. Palpations: Abdomen is soft. Musculoskeletal: Cervical back: Neck supple. Right lower leg: Edema present. Left lower leg: Edema present. Skin: General: Skin is warm and dry. Neurological: General: No focal deficit present. Mental Status: She is alert and oriented to person, place, and time. Psychiatric: Mood and Affect: Mood normal. Behavior: Behavior normal. Thought Content: Thought content normal. Judgment: Judgment normal. Labs: No results found for any previous visit. No results found for: EXTCMP , BMPR1A , CBCDIF , BNP , LASAP , RED 11/08/2023 NTproBNP: 109 Testing/Procedures: ECHO 07/28/2023 CONCLUSION: 1. Normal ventricular systolic function. LVEF is 55%. 2. Grade 2 diastolic dysfunction. 3. Moderate aortic valve stenosis. 4. Mild mitral regurgitation. 5. Anterior free space, infusion versus fat pad. 6. Technically difficult study with poor sound transmission. ASSESSMENT/PL (more content not included)... [facility] 11-23-2023 Note Patient here for 1 m o follow up CHF, aortic valve stenosis, and hyperlipidemia. BNP was drawn recently, but BMP was not. Denies chest pain. Says her LE edema and SOB remain unchanged from last month's visit. She turns 88 years old on Tuesday! Review of Systems Cardiovascular: Positive for dyspnea on exertion. Respiratory: Positive for cough and shortness of breath. Musculoskeletal: Positive for falls. Neurological: Positive for light-headedness, loss of balance and numbness. All other systems reviewed and are negative. [facility] 10-21-2023 Note New patient here to establish care. Ref from Dr. Rothman for chronic congestive heart failure. She denies chest pain. Has SOB (COPD on O2) and LE edema. She often gets water blisters on her LE. Was admitted to [facility] in Aug 2023 for respiratory failure. She thinks echo was done for CHF but report not found. Says her only issue is SOB. [facility] 10-21-2023 Note Cardiology Clinic No te Chief Complaint: congestive heart failure HPI: Claribel Mariscal is a 87 y.o. female with a past medical history of reported systolic heart failure, Moderate aortic stenosis, and COPD. Patient was referred to Cardiology clinic for evaluation of Heart failure. Patient was hospitalized in August 2023 for shortness of breath and was treated for COPD exacerbation. Today, patient complains of stable chronic shortness of breath. She states she has chronic lower extremity edema. She denies any chest pain. She denies any orthopnea or paroxysmal nocturnal dyspnea. She is taking her Lasix on an as-needed basis. No near-syncope or syncope. Echo was reportedly performed but unavailable for review. Cardiology ROS: GENERAL: Denies fever, chills, night sweats, weight loss. HEENT: Denies changes in vision, photophobia, changes in hearing, epistaxis, oral bleeding. CARDIOVASCULAR: As per HPI RESPIRATORY: Denies SOB, coughing, wheezing GI: Denies abdominal pain, nausea/vomiting, heartburn, melena/hematochezia. RENAL: Denies dysuria, hematuria, flank pain. MSK: Denies muscle weakness/pain, arthralgias/joint pain. NEUROLOGIC: Denies LOC, weakness, numbness, headaches. SKIN: Denies abnormal rashes or bleeding. PSYCH: Denies significant anxiety, depression, sleep disturbances. Past Medical History She has a past medical history of CHF (congestive heart failure) ([facility]) and COPD (chronic obstructive pulmonary disease) ([facility]). Surgical History She has a past surgical history that includes Knee surgery; Shoulder surgery; and Hysterectomy. Social History She reports that she quit smoking about 56 years ago. Her smoking use included cigarettes. She has never used smokeless tobacco. She reports current alcohol use. No history on file for drug use. Family History Family History Problem Relation Name Age of Onset Heart failure Mother Congenital heart disease Brother Other (cabg) Brother Medications Current Outpatient Medications on File Prior to Visit Medication Sig Dispense Refill atorvastatin (Lipitor) 10 mg tablet 10 mg 1 (one) time each day. doxepin (SINEquan) 50 mg capsule DULoxetine (Cymbalta) [address] capsule Take by mouth in the morning. furosemide (Lasix) 40 mg tablet Take 40 mg by mouth in the morning. metFORMIN (Glucophage) 500 mg tablet Take 500 mg by mouth in the morning and at bedtime. nabumetone (Relafen) 750 mg tablet potassium chloride CR (Klor-Con) 10 mEq ER tablet Take 10 mEq by mouth in the morning. pramipexole (Mirapex) 0.5 mg tablet Ventolin HFA 90 mcg/actuation inhaler No current facility-administered medications on file prior to visit. Allergies Patient has no known allergies. Physical Exam VITAL SIGNS: BP 140/70 (BP Location: Left arm, Patient Position: Sitting) Pulse 86 Ht 1.397 m (4' 7 ) Wt 77.6 kg (171 lb) SpO2 (!) 88% BMI 39.74 kg/m??? Constitutional: Well developed, Well nourished, No acute distress, Non-toxic appearance. HENT: Normocephalic, Atraumatic, Bilateral external ears have normal appearance, Nose appears normal, nares are patent. Eyes: PERRLA, EOMI, Conjunctiva normal, No discharge. Neck: Normal range of motion, No tenderness, Supple, No stridor. No cervical lymphadenopathy noted. Cardiovascular: Normal heart rate, Normal rhythm, No murmurs, No rubs, No gallops. Thorax & Lungs: Normal breath sounds, No respiratory distress, No wheezing, No chest tenderness to palpation. Abdomen: Bowel sounds normal, Soft, Nontender, No masses, No pulsatile masses. Skin: Warm, Dry, No erythema, No rash. Back: No tenderness, No CVA tenderness. Extremities: Intact distal pulses, No edema, No tenderness, No cyanosis, No clubbing. Musculoskeletal: Grossly normal strength in extremities Neurologic: Alert & oriented x 3, no gross focal neurological deficits Psychiatric: Affect normal, Judgment normal, Mood normal. Impression: -Heart failure, reportedly with systolic dysfunction -Moderate aortic stenosis -HLD Plan: -Patient is currently taking Lasix 40 mg daily. Recommend the patient takes scheduled dose of Lasix. Patient voices understanding. Check BMP in 1 to 2 weeks -Patient has reported systolic dysfunction and moderate aortic stenosis on previous echo. Most recent echo is not available for review. Will attempt obtain outside records. If unable, recommend repeating echocardiogram to assess LVEF and to interrogate valves -Continue Atorvastatin for hyperlipidemia -Patient's shortness of breath is likely multifactorial, with large component being respiratory. Recommend continued pulmonology follow-up and optimization of COPD meds -Optimize medical management -Aggressive risk factor modification -Plan of care discussed with patient. All questions were answered. Patient voices understanding and is agreeable with current plan. -Patient was educated on red flag symptoms. Strict return preca (more content not included)... [facility] 09-14-2023 Evaluation note Encounter Date Diagnosis Assessment Notes Aug, Chronic systolic congestive heart failure (ICD-10 - I50.22) [email or web address] Other 11-20-2023 Evaluation note* Encounter Date Diagnosis Assessment Notes Treatment Notes Treatment Clinical Notes Aug, Chronic systolic congestive heart failure [...] Will followup w Dr. Weber on 09/14. [email or web address] Other 10-18-2023 Evaluation note* Encounter Date Diagnosis Assessment Notes Treatment Notes Treatment Clinical Notes Jul, Chronic systolic congestive heart failure (ICD-10 - I50.22) Jul, Moderate aortic stenosis (ICD-10 - I35.0) [email or web address] Other 04-25-2023 NotePROCEDURE: XR CHEST 2 V DATE: 02/08/2023 1:07 [...] Electronically authenticated by: SHAY CHAVEZ Date: 2023-02-08 14:31[facility]04-25-2023 Evaluation note* Encounter Date Diagnosis Assessment Notes Treatment Notes Treatment Clinical Notes Jan, Type 2 diabetes mellitus with hyperglycemia, unspecified whether correction insulin use (ICD-10 - E11.65) [email or web address] Other 03-13-2023 Evaluation note* Encounter Date Diagnosis Assessment Notes Treatment Notes Treatment Clinical Notes Dec, Chronic diarrhea (ICD-10 - K52.9) [...] improvement in past - will monitor symptoms. [email or web address] Other Evaluation noteNo InformationNort [employer] Other History general Narrative - Reported* Type Description Date Medical History RLS Medical History Arthritis Medical [...] 1974 Surgical History Right hand surgery 1994 [email or web address] Other History general Narrative - Reported* Type Description Date Medical History RLS Medical History Arthritis Medical [...] History Right hand surgery 1994 Hospitalization History [facility] 08/2023 [email or web address] Other Summary Purpose Family History No Family History Records FoundNo Family History Records Found Advance Directives No Advanced Directives Records FoundNo Advanced Directives Records Found Reason for Referral Reason * 09/23 [place] [facility] - heart failure. 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.22) Referral Organization [facility] [place] Referring Provider First Name Daiana Referring Provider Last Name Lorna Referring Provider Specialty [facility] Referred Organization [facility] Referred Address [address],[place], [place],[address] Referred Provider Specialty Cardiology Referral Priority Routine General Notes Mary Holman 01:24:39 PM >received today, attachments made, notes locked, referral faxed to [place] office Clinical Notes f: [phone] Reason *Waiting for appt Admitted for CHF at [facility], will get records. She cancelled appt w Dr. Leonora Beckham when she was d/c from hospital. (She was confused on followup) She agrees now to see her. 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.22) Referral Organization [facility] [place] Referring Provider First Name Daiana Referring Provider Last Name Lorna Referring Provider Specialty Family [facility] cine Referred Organization [facility] Cardiology Referred Provider Leonora Beckham Referred Address [address],[facility] [address],[place], [id number] Referred Provider Specialty Cardiovascul ar Disease Referral Priority Routine General Notes Mary Holman 12:53:16 PM >received today, faxed P2P Reason *Waiting for appt Echo and last 2 OV - LE edema. 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.22) Referral Organization [facility] [place] Referring Provider First Name Daiana Referring Provider Last Name Lorna Referring Provider Specialty Family [facility] Referred Organization [facility] Cardiology Referred Provider Leonora Beckham Referred Address [address],[place], [id number] Referred Provider Specialty Cardiovascul ar Disease Referral Priority Routine General Notes Mary Holman 01:17:28 PM >received today, sent P2P Additional Source Comments REASON FOR VISIT (unrecogniz ed section and content) new patient CHECK UPcheck on symptomsNo Informationrefillecho and labsRefillCARDIO UPDATETBHmessagerefillRefill INFORMATION SOURCE (unrecogn ized section and content) DATE CREATED AUTHOR 02/12/2023 [facility] DATE CREATED AUTHOR AUTHOR'S ORGANIZ ATION 12/02/2023 [facility] FOR RECORDS PERTAINING TO PATIENTS WHO [...] BE BASED ON THE PRIMARY CLINICAL RECORDS. [employer] provides no warranty or guarantee of the accuracy or completeness of information in this document.
== END 2023-12-22 13:24 | disposition home or self-care (01) ==
LOC: RAD 13:25
PROVIDERS: PCP Family Medicine; Visit Provider Nurse Practitioner Family
DX: I50.32 Chronic diastolic (congestive) heart failure (principal)
CPT/HCPCS: 71046

== ENCOUNTER 2024-03-09 13:46 | Outpatient (OUT) | payer MEDICARE, BC, SELFPAY ==
--- OUTSIDE RECORDS SUMMARY | 2024-03-09 14:04 | XMS_ITS | CCD ---
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 Name Role Phone Daiana Rothman Unavailable SAM .DAMIEN Admitting Unavailable SAMDAMIEN WEISS Consulting Unavailable DAMIEN MOODY Attending Unavailable ESTELA, DR DAIANA Rg Primary Care Unavailable SHAY CHAVEZ Consulting Unavailable DR DAIANA ROTHMAN Admitting Unavailable DR DAIANA ROTHMAN Primary Care Unavailable DR DAIANA ROTHMAN Consulting Unavailable DR DAIANA ROTHMAN Attending Unavailable Leonora Beckham Unavailable ALPHONSO MARTIN Attending Unavailable SHEMAR PERRIN Attending Unavailable SHEMAR PERRIN Attending Unavailable Medications Current Medications Medication Drug Class(es) Dates Sig (Normalized) Sig (Original) [id number] 200 actuat albuterol 0.09 mg/actuat metered dose [...] Results Test Name Value Interpretation Reference Range [facility] Office Visiton 12-22-2023 Follow-up visit [id number] Claribel Mariscal 1935 F Date Provider Department Center 12/22/2023 [id number] Family History Problem Relation Age of Onset Heart failure Mother Congenital heart disease Brother Other Brother Family Status - Relation Status Age at Mother Brother Level of Service:62125 [place] OFFICE/OUTPATIENT ESTABLISHED MOD MDM 30 MIN Reason for Visit and Comments: Congestive Heart Failure [127] Hypertension [446631] Normal [facility] 37on 11-23-2023 37 *Alternate your lasix, take 1 tablet every other day and 2 tablets every other day *Have lab work done in 1-2 weeks *Take the antibiotic prescribed until it runs out. If the redness and warmth does not improve, follow-up with Dr. Rothman [facility] Office Visiton 11-23-2023 Follow-up visit [id number] Claribel Mariscal 1935 Date Provider Department Center 11/23/2023 SHEMAR WEBBER Family History Problem Relation Age of Onset Heart failure Mother Congenital heart disease Brother Other Brother Family Status - Relation Status Age at Mother Brother Level of Service:38967 [place] OFFICE/OUTPATIENT ESTABLISHED MOD MDM 30 MIN Reason for Visit and Comments: Congestive Heart Failure [127] Valve Disorder [3372] [facility] Office Visiton 10-21-2023 Follow-up visit [id number] Claribel Mariscal 1935 Provider Department Center 10/21/2023 ALPHONSO ROCHA [facility] Family History Problem Relation Age of Onset Heart failure Mother Congenital heart disease Brother Other Brother Family Status - Relation Status Age at Mother Brother Level of Service:48620 [place] OFFICE/OUTPATIENT NEW MODERATE MDM 45 MINUTES Normal [facility] Orders Onlyon 10-21-2023 Orders Only [id number] Claribel Mariscal 1935 Provider Department Center 10/21/2023 MICHAEL READ [facility] Family History Problem Relation Age of Onset Heart failure Mother Congenital heart disease Brother Other Brother Family Status - Relation Status Age at Mother Brother [facility] GLYCOHEMOGLOBIN A1Con 2022 ADA RECOMMENDATION SEE BELOW Normal [facility] Comment on above: Result Comment: ADA RECOMMENDED LIMIT 4.0 - 6.0 ADA THERAPEUTIC TARGET < 7.0 ACTION SUGGESTED > 7.0 Performed By: #### A 1C #### [facility] [address] [place] [address] Dr. Raj Joel Glucose [Mass/Vol] 163 mg/dL [facility] Comment on above: Performed By: #### A 1C #### [facility] [address] [place] [address] Dr. Raj Joel HbA1c (Bld) [Mass fraction] 7.3 % Critically high 4.5-6.2 [facility] Comment on above: Performed By: #### A 1C #### [facility] [address] [place] [address] Dr. Raj Joel PROF 14(COMP METB)on 023 Albumin [Mass/Vol] 3.2 g/dL Critically low 3.4-5.0 [facility] Comment on above: Performed By: #### C MP #### [facility] [address] [place] [address] Dr. Raj Joel Albumin/Globulin [Mass ratio] 0.8 {ratio} Normal [facility] Comment on above: Performed By: #### C MP #### [facility] [address] [place] [address] Dr. Raj Joel ALP [Catalytic activity/Vol] 101 U/L Normal 46-116 [facility] Comment on above: Performed By: #### C MP #### [facility] [address] [place] [address] Dr. Raj Joel ALT [Catalytic activity/Vol] 21 U/L Normal 14-59 [facility] Comment on above: Performed By: #### C MP #### [facility] [address] [place] [address] Dr. Raj Joel Anion gap [Moles/Vol] 9.6 mmol/L Normal [facility] Comment on above: Performed By: #### C MP #### [facility] [address] [place] [address] Dr. Raj Joel AST [Catalytic activity/Vol] 12 U/L Critically low 15-37 [facility] Comment on above: Performed By: #### C MP #### [facility] [address] [address] [address] Raj Joel Bilirubin [Mass/Vol] 0.4 mg/dL Normal 0.2-1.0 [facility] Comment on above: Performed By: #### C MP #### [facility] [address] [address] [address] Raj Joel Calcium [Mass/Vol] 9.4 mg/dL Normal 8.5-10.1 [facility] Comment on above: Performed By: #### C MP #### [facility] [address] [address] [address] Raj Joel Chloride [Moles/Vol] 105 mmol/L Normal 98-107 [facility] Comment on above: Performed By: #### C MP #### [facility] [address] [place] [address] Dr. Raj Joel CO2 [Moles/Vol] 33.9 mmol/L Critically high 21.0-32.0 [facility] Comment on above: Performed By: #### C MP #### [facility] [address] [place] [address] Dr. Raj Joel Creatinine [Mass/Vol] 0.85 mg/dL Normal 0.55-1.02 [facility] Comment on above: Performed By: #### C MP #### [facility] [address] [place] [address] Dr. Raj Joel EGFR-AF BULGARIAN >60 Normal >=60 [facility] Comment on above: Performed By: #### C MP #### [facility] [address] [address] [address] Raj Joel EGFR-NON AF BULGARIAN >60 Normal >=60 [facility] Comment on above: Performed By: #### C MP #### [facility] [address] [address] [address] Raj Joel Globulin (S) [Mass/Vol] 4.1 g/dL Normal [facility] Comment on above: Performed By: #### C MP #### [facility] [address] [address] [address] Raj Joel Glucose [Mass/Vol] 119 mg/dL Critically high 74-106 [facility] Comment on above: Performed By: #### C MP #### [facility] [address] [address] [address] Raj Joel Potassium [Moles/Vol] 4.5 mmol/L Normal 3.5-5.1 [facility] Comment on above: Performed By: #### C MP #### [facility] [address] [address] [address] Raj Joel Protein [Mass/Vol] 7.3 g/dL Normal 6.4-8.2 [facility] Comment on above: Performed By: #### C MP #### [facility] [address] [address] [address] Raj Joel Sodium [Moles/Vol] 144 mmol/L Normal 136-145 [facility] Comment on above: Performed By: #### C MP #### [facility] [address] [address] [address] Raj Joel Urea nitrogen [Mass/Vol] 21.0 mg/dL Critically high 7.0-18.0 [facility] Comment on above: Performed By: #### C MP #### [facility] [address] [address] [address] Raj Joel Urea nitrogen/Creatinine [Mass ratio] 24.7 mg/mg Normal [facility] Comment on above: Performed By: #### C MP #### [facility] [address] [address] [address] Raj Joel Vital Signs Date Time Vital Sign Value Performing Clinician Facility 09-05-2023 11:45-0500 Body height 139.7 cm Daiana Rothman Other [facility] Other 09-05-2023 11:45-0500 Body mass index (BMI) [Ratio] 39.28 kg/m2 Daiana Rothman Other [facility] Other 09-05-2023 11:45-0500 Body weight 76.66 kg Daiana Rothman Other [facility] Other 09-05-2023 11:45-0500 Diastolic blood pressure 80 mm[Hg] Daiana Rothman Other [facility] Other 09-05-2023 11:45-0500 Systolic blood pressure 142 mm[Hg] Daiana Rothman Other [facility] Other 02-08-2023 15:39-0400 Body height 139.7 cm Daiana Rothman Other [facility] Other 12-27-2022 15:00-0400 Body height 139.7 cm Daiana Rothman Other [facility] Other 12-27-2022 15:00-0400 Body mass index (BMI) [Ratio] 40.67 kg/m2 Daiana Rothman Other [facility] Other 12-27-2022 15:00-0400 Body weight 79.38 kg Daiana Rothman Other [facility] Other 12-27-2022 15:00-0400 Diastolic blood pressure 78 mm[Hg] Daiana Rothman Other [facility] Other 12-27-2022 15:00-0400 Systolic blood pressure 128 mm[Hg] Daiana Rothman Other [facility] Other Encounters Encounter Date Encounter Type Care Provider Facility Start: 12-22-2023 End: 12-22-2023 [facility] Start: 11-23-2023 End: 11-23-2023 [facility] Start: 11-01-2023 End: 11-01-2023 ambulatory Daiana Rothman Other [facility] Other Start: 11-01-2023 Telephone encounter Daiana Rothman [facility] Start: 10-26-2023 End: 10-26-2023 ambulatory Daiana Rothman Other [facility] Other Start: 10-26-2023 Telephone encounter Daiana Rothman [facility] Start: 10-21-2023 End: 10-21-2023 ambulatory [facility] Start: 09-14-2023 End: 09-14-2023 ambulatory Daiana Rothman Other [facility] Other Start: 09-14-2023 Telephone encounter Daiana Rothman [facility] Start: 09-05-2023 End: 09-05-2023 ambulatory Daiana Rothman Other [facility] Other Start: 09-05-2023 Office outpatient visit 25 minutes Daiana Rothman [facility] Start: 08-24-2023 End: 08-24-2023 ambulatory Leonora Beckham Other [facility] Other Start: 08-24-2023 Telephone encounter Leonora Beckham [employer] Start: 08-18-2023 End: 08-18-2023 ambulatory Daiana Rothman Other [facility] Other Start: 08-18-2023 Telephone encounter Daiana Rothman [facility] Start: 08-03-2023 End: 08-03-2023 ambulatory Daiana Rothman Other [facility] Other Start: 08-03-2023 Telephone encounter Daiana Rothman [facility] Start: 07-25-2023 End: 07-25-2023 ambulatory Daiana Rothman Other [facility] Other Start: 07-25-2023 Telephone encounter Daiana Rothman [facility] Start: 02-08-2023 End: 02-09-[address] DAIANA ROTHMAN [facility] Other Start: 02-08-2023 Telephone encounter Daiana Rothman [facility] Start: 01-07-2023 End: 01-07-2023 ambulatory Daiana Rothman Other [facility] Other Start: 01-07-2023 Telephone encounter Daiana Rothman [facility] Start: 12-27-2022 End: 12-27-2022 ambulatory Daiana Rothman Other [facility] Other Start: 12-27-2022 Office outpatient ne w 30 minutes Daiana Rothman [facility] Payers Date Payer Category Payer [facility] [id number] 1960 Medicare [id number] [id number] 1935 Unknown [id number] 1935 Unknown [id number] Social History Date Type Detail Facility Unknown if ever smoked [facility] Other Sex Assigned At Sex Assigned At Bir th [facility] Other Clinical Notes 12-27-2022 to 12-22-2023 Note Date & Type Note Facility 12-22-2023 Note [facility] SUBJECTIVE Chief Complaint Patient presents with Congestive Heart Failure Hypertension Claribel Mariscal is a 88 y.o. female here for follow-up. Her accompanied her. HPI PMHx: diastolic heart failure, moderate aortic stenosis, COPD on supplemental O2, chronic BLE edema, neuropathy, DM type II 12/22/2023 Patient here for 1 mo follow up acute on chronic HFpEF, B/L LE edema, and FINK. She was given Keflex for cellulitis at last apt in Nov 2023. Lasix was increased to 40mg and 80mg alternating every other day. She thinks someone stopped her potassium recently but doesn't know who or why. Potassium was 4.2 a week or so ago. Her LE swelling and redness has improved. Her breathing is the same. She gets worsened SOB when she mouth breaths. She does have some orthopnea. Her weight is up 2# since last seen. She admits she likes to eat sweets. She denies CP, PND, palpitations, syncope. Patient Active Problem List Diagnosis Benign hypertensive heart disease with heart failure ([facility]/HCC) Diabetes mellitus type II, non insulin dependent ([facility]) Chronic diastolic heart failure ([facility]) Hyperlipidemia Nonrheumatic aortic valve stenosis Past Medical History: Diagnosis Date CHF (congestive heart failure) ([facility]) COPD (chronic obstructive pulmonary disease) ([facility]) Diabetes mellitus type II, non insulin dependent ([facility]) 11/30/2023 Heart valve disease Hyperlipidemia Family History Problem Relation Name Age of Onset Heart failure Mother Congenital heart disease Brother Other (cabg) Brother Social History Tobacco Use Smoking status: Former Types: Cigarettes Quit date: 1968 Years since quittin.2 Smokeless tobacco: Never Substance Use Topics Alcohol use: Yes Comment: occasional No Known Allergies ROS Cardiovascular: Positive for dyspnea on exertion. Respiratory: Positive for cough and shortness of breath. Skin: Positive for dry skin. Musculoskeletal: Positive for falls. Neurological: Positive for light-headedness, loss of balance and numbness. All other systems reviewed and are negative. OBJECTIVE Visit Vitals BP 142/80 (BP Location: Left arm, Patient Position: Sitting) Pulse 73 Ht 1.397 m (4' 7 ) Wt 79.8 kg (176 lb) SpO2 (!) 89% Comment: on 2L O2 BMI 40.91 kg/m??? Smoking Status Former BSA 1.76 m??? Medications: Current Outpatient Medications: atorvastatin (Lipitor) 10 mg tablet, 10 mg 1 (one) time each day., Disp: , Rfl: doxepin (SINEquan) 50 mg capsule, , Disp: , Rfl: DULoxetine (Cymbalta) [address] capsule, Take by mouth in the morning., Disp: , Rfl: furosemide (Lasix) 40 mg tablet, Take 40 mg by mouth in the morning. Alternates 40mg and 80mg every other day, Disp: , Rfl: metFORMIN (Glucophage) 500 mg tablet, Take 500 mg by mouth in the morning and at bedtime., Disp: , Rfl: nabumetone (Relafen) 750 mg tablet, , Disp: , Rfl: pramipexole (Mirapex) 0.5 mg tablet, , Disp: , Rfl: Ventolin HFA 90 mcg/actuation inhaler, , Disp: , Rfl: dapagliflozin propanediol (Farxiga) 10 mg, Take 1 tablet (10 mg) by mouth in the morning., Disp: 30 tablet, Rfl: 0 potassium chloride CR (Klor-Con) 10 mEq ER tablet, Take 10 mEq by mouth in the morning., Disp: , Rfl: Physical Exam Vitals reviewed. Constitutional: Appearance: She [...] CBCDIF , BNP , LASAP , RED 12/13/2023 Cr 0.9, BUN 20, K 4.2, Na 142, eGFR 59 11/08/2023 NTproBNP: 109 Testing/Procedures: ECHO 07/28/2023 CONCLUSION: 1. Normal ventricular systolic function. LVEF is 55%. 2. Grade 2 diastolic dysfunction. 3. Moderate aortic valve stenosis. 4. Mild mitral regurgitation. 5. Anterior free space, infusion versus fat pad. 6. Technically difficult study with p (more content not included)... [facility] 12-22-2023 Note Patient here for 1 m o follow up acute on chronic HFpEF, B/L LE edema, and FINK. She was given Keflex for cellulitis at last apt in Nov 2023. Lasix was increased to 40mg and 80mg alternating every other day. She thinks someone stopped her potassium recently but doesn't know who or why. Potassium was 4.2 a week or so ago. Review of Systems Cardiovascular: Positive for dyspnea on exertion. Respiratory: Positive for cough and shortness of breath. Skin: Positive for dry skin. Musculoskeletal: Positive for falls. Neurological: Positive for light-headedness, loss of balance and numbness. All other systems reviewed and are negative. [facility] 11-23-2023 Note [facility] SUBJECTIVE Chief Complaint Patient presents with Congestive [...] Benign hypertensive heart disease with heart failure (CMS/HCC) Diabetes mellitus type II, non insulin dependent (CMS/HCC) Chronic diastolic heart failure (CMS/HCC) Hyperlipidemia Nonrheumatic aortic valve stenosis Past Medical History: Diagnosis Date CHF (congestive heart failure) ([facility]) COPD (chronic obstructive pulmonary disease) ([facility]) Diabetes mellitus type II, non insulin dependent ([facility]) 11/30/2023 Heart valve disease Hyperlipidemia Family History [...] sound transmission. ASSESSMENT/PL (more content not included)... [facility] 11-23-2023 Note Patient here for 1 m [...] All other systems reviewed and are negative. [facility] 10-21-2023 Note Cardiology Clinic No te Chief [...] medical history of CHF (congestive heart failure) ([facility]) and COPD (chronic obstructive pulmonary disease) ([facility]). Surgical History She has a past surgical [...] Strict return preca (more content not included)... [facility] 10-21-2023 Note New patient here to establish care. Ref from Dr. Rothman for chronic congestive heart failure. She denies chest pain. Has SOB (COPD on O2) and LE edema. She often gets water blisters on her LE. Was admitted to [facility] in Aug 2023 for respiratory failure. She thinks echo was done for CHF but report not found. Says her only issue is SOB. [facility] 09-14-2023 Evaluation note Encounter Date Diagnosis Assessment Notes Aug, Chronic systolic congestive heart failure (ICD-10 - I50.22) [facility] Other 11-20-2023 Evaluation note* Encounter Date Diagnosis [...] Will followup w Dr. Weber on 09/14. [facility] Other 10-18-2023 Evaluation note* Encounter Date Diagnosis Assessment Notes Treatment Notes Treatment Clinical Notes Jul, Chronic systolic congestive heart failure (ICD-10 - I50.22) Jul, Moderate aortic stenosis (ICD-10 - I35.0) [facility] Other 04-25-2023 NotePROCEDURE: XR CHEST 2 V [...] Electronically authenticated by: SHAY CHAVEZ Date: 2023-02-08 14:31[facility]04-25-2023 Evaluation note* Encounter Date Diagnosis Assessment Notes Treatment Notes Treatment Clinical Notes Jan, Type 2 diabetes mellitus with hyperglycemia, unspecified whether intermodal customer service insulin use (ICD-10 - E11.65) [facility] Other 03-13-2023 Evaluation note* Encounter Date Diagnosis [...] improvement in past - will monitor symptoms. [facility] Other Evaluation noteNo InformationN[employer] Other History general Narrative - Reported* Type [...] 1974 Surgical History Right hand surgery 1994 [facility] Other History general Narrative - Reported* Type [...] suspension 1970 Surgical History Neck surgery, spurs 1975 Surgical History Right hand surgery 1994 Hospitalization History [facility] 08/2023 [facility] Other Summary Purpose Family History No Family History Records FoundNo Family History Records Found Advance Directives No Advanced Directives Records FoundNo Advanced Directives Records Found Reason for Referral Reason *FU 09/23 [place] office - heart failure. 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.22) Referral Organization [facility] [employer] Referring Provider First Name Daiana Referring Provider Last Name Estela Referring Provider Specialty [facility] [employer] Referred Organization [facility] Referred Address [address],[place], [place],[address] Referred Provider Specialty Cardiology Referral Priority Routine General Notes Mary Holman 01:24:39 PM >received today, attachments made, notes locked, referral faxed to [place] office Clinical Notes f: [phone] Reason *Waiting for appt Admitted for CHF at [facility], will get records. She cancelled appt w Dr. Leonora Beckham when she was d/c from hospital. (She was confused on followup) She agrees now to see her. 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.22) Referral Organization [facility] [employer] Referring Provider First Name Daiana Referring Provider Last Name Estela Referring Provider Specialty [facility] [employer] Referred Organization [facility] Cardiology Referred Provider Leonora Beckham Referred Address [address] [place] [address],[address],[phone] Referred Provider Specialty Cardiovascul ar Disease Referral Priority Routine General Notes Mary Holman 12:53:16 PM >received today, faxed P2P Reason *Waiting for appt Echo and last 2 OV - LE edema. 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.22) Referral Organization [facility] [employer] Referring Provider First Name Daiana Referring Provider Last Name Estela Referring Provider Specialty [facility] [employer] Referred Organization [facility] Referred Provider Leonora Beckham Referred Address [address],[facility] [address],[place], [id number] Referred Provider Specialty Cardiovascul ar Disease Referral Priority Routine General Notes KavinMary kaye 01:17:28 PM >received today, sent P2P Additional Source Comments REASON FOR VISIT (unrecogniz ed section and content) new patient CHECK UPcheck on symptomsNo Informationrefillecho and labsRefillCARDIO UPDATETBHmessagerefillRefill INFORMATION SOURCE (unrecogn ized section and content) DATE CREATED AUTHOR 02/12/2023 [facility] DATE CREATED AUTHOR AUTHOR'S ORGANIZ ATION 12/23/2023 [facility] FOR RECORDS PERTAINING TO PATIENTS WHO ARE [...] BE BASED ON THE PRIMARY CLINICAL RECORDS. [employer] provides no warranty or guarantee of the accuracy or completeness of information in this document.
[2024-03-09 15:49] LABS: Anion Gap 9.9; BUN Creatinine Ratio 23.3; Calcium 9.4 mg/dL (8.5-10.1); Carbon Dioxide 33.3 mmol/L (21.0-32.0); Chloride 103 mmol/L (98-107); Estimated GFR (African America >60 (>=60); Estimated GFR (Non-African Ame 59 (>=60); Glucose 115 mg/dL (74-106); Potassium 4.2 mmol/L (3.5-5.1); Sodium 142 mmol/L (136-145)
== END 2024-03-09 13:47 | disposition home or self-care (01) ==
LOC: LAB 13:47
PROVIDERS: PCP Family Medicine; Visit Provider Nurse Practitioner Family
DX: I50.32 Chronic diastolic (congestive) heart failure (principal)
CPT/HCPCS: 36415; 80048

== ENCOUNTER 2024-04-13 13:44 | Outpatient (OUT) | payer MEDICARE, BC, SELFPAY ==
--- NOTE | 2024-04-13 14:00 | CA_ITS ---
Patient Name: RUTHANN MARISCAL MR#: [id number] : 1935 Exam Date: 04/13/2024 Ordering Doctor: ALPHONSO RESENDEZ M.D. ECHOCARDIOGRAM REPORT PROCEDURE: CA ECHO DOPPLER COMPLETE INDICATIONS: Heart failure with reduces ejection fraction, diabetes COMPARISON: None. DESCRIPTION: COMPLETE ECHOCARDIOGRAM Real-time transthoracic echocardiography with 2D, M-mode, spectral and color flow Doppler performed. QUALITY: Technical quality was good. LEFT VENTRICLE: Normal chamber size. Borderline left ventricular hypertrophy. Normal systolic function. LV EF: Normal left ventricular ejection fraction, (>55%). DIASTOLIC: Grade II diastolic dysfunction. ATRIAL SEPTUM: Visually appears intact. LEFT ATRIUM: Moderate dilatation. RIGHT ATRIUM: Normal chamber size. RIGHT VENTRICLE: Normal chamber size. Normal right ventricular systolic function. TRICUSPID VALVE: Normal mobility and thickness. No stenosis with mild regurgitation. Doppler studies reveal moderately (45-60) elevated right sided pressures. RVSP 56 mmHg MITRAL VALVE: Mildly thickened with normal mobility. No evidence of mitral valve stenosis. Mild mitral annular calcification. Mild mitral regurgitation. AORTIC VALVE: Normal trileaflet appearance. Moderately calcified aortic valve. Mildly diminished mobility. Doppler velocity suggests mild to moderate aortic valve stenosis. DVI 0.3, mean gradient 17 mmHg, peak velocity 2.9 m/s. No aortic regurgitation. AORTIC ROOT: Normal diameter and appearance. Ascending aorta is normal in size. PULMONIC VALVE: Normal thickness and mobility. No stenosis. No regurgitation. PERICARDIUM: No evidence of pericardial effusion. IVC: IVC is mildly (2.2 cm) with no collapse. PLEURA: CONCLUSION: 1. The left ventricle is normal in size and exhibits normal systolic function. LVEF is 55-60%. 2. The right ventricle is normal in size and systolic function. 3. Grade II diastolic dysfunction. 4. Mild to moderate aortic valve stenosis. 5. Mild mitral and tricuspid regurgitation. 6. Moderately elevated right sided pressures. RVSP is 56 mmHg. Adult Echocardiography Procedure Report Left Ventricle LVEDD (3.7 - 5.6 cm): 4.18 cm LVESD (2.2 - 4.0 cm): 3.44 cm LVIVS thickness (0.6 - 1.2 cm): 0.80 cm LVPW thickness (0.5 - 1.0 cm): 1.07 cm e': 0.06 m/s E - e': 21.91 LVOT Max Gradient: 2.42 mm[Hg] LVOT Area (cm2): 0.78 m/s Peak Velocity (LVOT): 0.78 m/s Mean Velocity (LVOT): 0.56 m/s LVOT Diameter 2.20 cm Left Atrium LA Volume Index (2D A2C): 44.60 ml/m2 Left Atrium Systolic Dimension: 3.29 cm Mitral Valve MV E to A Ratio: 1.14, 1.12 Right Ventricle Aorta AO Root Diam: 2.72 cm Ascending Ao Diam: 2.77 cm Aortic Valve AoV Area (Peak Ritesh): 1.02 cm2, 1.02 cm2 AoV Area (VTI): 1.27 cm2, 1.29 cm2 Peak Velocity(Antegrade Flow): 2.89 m/s, 2.58 m/s, 2.41 m/s Peak Gradient(Antegrade Flow): 33.43 mm[Hg], 26.58 mm[Hg], 23.20 mm[Hg] Mean Velocity(Antegrade Flow): 1.90 m/s, 1.76 m/s, 1.77 m/s Mean Gradient(Antegrade Flow): 17.10 mm[Hg], 14.69 mm[Hg], 13.90 mm[Hg] Velocity Time Integral: 65.09 cm, 65.56 cm, 65.91 cm Tricuspid Valve Peak Velocity (Regurgitant Flow): 3.20 m/s Pulmonic Valve Mean Gradient: 2.16 mm[Hg] Mean Velocity: 0.70 m/s Peak Velocity: 0.98 m/s, 1.10 m/s Peak Gradient: 4.88 mm[Hg], 3.87 mm[Hg] Right Atrium Right Atrium Systolic Pressure: 32.91 ml, 32.91 ml Dictated by: Reed Braxton M.D. on 04/13/2024 at 21:41 Approved by: Reed Braxton M.D. on 04/13/2024 at 21:52
== END 2024-04-13 13:45 | disposition home or self-care (01) ==
LOC: CARD 13:44
PROVIDERS: PCP Family Medicine; Visit Provider Internal Medicine Cardiovascular Disease
DX: I50.22 Chronic systolic (congestive) heart failure (principal)
CPT/HCPCS: 93306

== ENCOUNTER 2024-07-11 10:24 | Outpatient (OUT) | payer MEDICARE, BC, SELFPAY ==
--- OUTSIDE RECORDS SUMMARY | 2024-07-11 10:46 | XMS_ITS | CCD ---
Author Organization [facility] Care Team Providers Care Configuration Specialist Name Role Phone Daiana Rothman Unavailable SAMSA ., DAMIEN Admitting Unavailable SAMSA ., DAMIEN Consulting Unavailable WILLIAM Glass DAMIEN Attending Unavailable LORNA, DR DAIANA Rg Primary Care Unavailable SHAY CHAVEZ Consulting Unavailable DR DAIANA ROTHMAN Admitting Unavailable DR DAIANA ROTHMAN Primary Care Unavailable DR DAIANA ROTHMAN Consulting Unavailable LORNA, DR DAIANA Rg Attending Unavailable Chapincito Leonora Unavailable SHEMAR HOLCOMB Attending Unavailable ALPHONSO MARTIN Attending Unavailable ALPHONSO MARTIN Attending Unavailable ALPHONSO MARTIN Attending Unavailable SHEMAR HOLCOMB Attending Unavailable Medications Current Medications Medication Drug Class(es) Dates Sig (Normalized) Sig (Original) [id number] 200 actuat albuterol 0.09 mg/actuat metered dose inhaler (12 sources) beta2-Adrenergic Agonist Start: 04-03-2024 take 1 puff(s) by inhalation every four hours Albuterol Sulfate (Ventolin Hfa) 90 mcg/actuation HFA aerosol inhaler Active 1 PUFF INHALATION Every 4 hours April 03, 2024 12:00am take 1 puff(s) by in halation every four hours as needed Ventolin HFA 108 (90 Base) MCG/ACT 1 puf f as needed Inhalation every 4 hrs Active atorvastatin 10 mg oral tablet (13 sources) HMG-CoA Reductase Inhibitor Start: 01-03-2024 take 1 tablet by mouth once daily Atorvastatin Active 0 .ROUTE .COMPLEX 90 January 03, 2024 3:49pm TAKE 1 TABLET BY MOUTH EVERY DAY FOR 30 DAYS Start: 01-03-2024 End: 01-03-2024 take 10 mg by mouth once daily Atorvastatin Discontinu ed 10 MG PO Daily January 03, 2024 12:00am January 03, 2024 3:49pm take 1 tablet by faustino every twenty-four hours Atorvastatin Calcium 10 MG 1 tablet Orally Once a day for 30 days Active dapagliflozin 10 mg oral tablet (1 source) Sodium-Glucose Cotransporter 2 Inhibitor Start: 07-05-2024 take 1 tablet by mouth once daily Dapagliflozin Propanediol (Farxiga) 10 mg tablet Active 10 MG PO Daily July 05, 2024 12:00am doxepin hydrochloride 50 mg oral capsule (12 sources) Tricyclic Antidepressant Start: 04-03-2024 take 1 capsule by mouth twice daily in the morning, then take 2 capsules by mouth twice daily in the evening Doxepin Active 0 PO Twice daily April 03, 2024 12:00am 1 capsule in AM and 2 capsules in PM orally twice daily; take 1 capsule by mo [facility] in the morning, then take 2 capsules by mouth twice daily at bedtime Doxepin HCl 50 MG 1 cap am and 2 caps HS Orally twice a day Active DULoxetine 30 mg delayed release oral capsule (9 sources) Serotonin and Norepinephrine Reuptake Inhibitor Start: 04-03-2024 take 30 mg by mouth once daily Duloxetine Active 30 MG PO Daily April 03, 2024 12:00am take 1 capsule by mouth once jt ly DULoxetine HCl 30 MG TAKE 1 CAPSULE BY MOUTH EVERY DAY for 90 Active furosemide 40 mg oral tablet (12 sources) Loop Diuretic Start: 04-03-2024 take 40 mg by mouth once daily Furosemide Active 40 MG PO Daily April 03, 2024 12:00am take 1 tablet by mouth once awa y Furosemide 40 MG TAKE 1 TABLET BY MOUTH EVERY DAY for 90 Active take 1 tablet by faustino every twenty-four hours Furosemide 20 MG 1 tablet Orally Once a day Active metFORMIN hydrochloride 500 mg oral tablet (5 sources) Biguanide Start: 04-03-2024 take 500 mg by mouth twice daily Metformin Active 500 MG PO Twice daily April 03, 2024 12:00am Start: 10-26-2023 take 1 tablet by faustino twice daily metFORMIN HCl 500 MG 1 tablet Orally twice daily for 90 days Oct, Active take 1 tablet by faustino every twenty-four hours metFORMIN HCl 500 MG 1 tablet with a meal Orally Once a day Active nabumetone 750 mg oral tablet (12 sources) Nonsteroidal Anti-inflammatory Drug Start: 04-03-2024 Nabumetone Active 750 MG PO As Directed April 03, 2024 12:00am Nabumetone 750 M G as directed Orally Active potassium chloride 10 meq extended release oral tablet (13 sources) Start: 04-30-2024 take 1 tablet by mouth twice daily at mealtime Potassium Chloride Active 0 .ROUTE .COMPLEX 180 April 30, 2024 12:36pm TAKE 1 TABLET BY MOUTH TWICE A DAY WITH FOOD FOR 90 DAYS Start: 04-03-2024 End: 04-30-2024 take 10 mEq by mouth twice daily Potassium Chloride Discontinued 10 MEQ PO Twice daily April 03, 2024 12:00am April 30, 2024 12:36pm take 1 tablet by faustino th every twelve hours Potassium Chloride ER 10 MEQ 1 tablet with food Orally Twice a day for 90 days Active pramipexole dihydrochloride 0.5 mg oral tablet (13 sources) Nonergot Dopamine Agonist Start: 04-03-2024 End: 07-05-2024 take 0.5 mg by mouth once daily at bedtime Pramipexole Active 0.5 MG PO Daily at bedtime July 05, 2024 2:49pm take 1 tablet by faustino th every twenty-four hours Pramipexole Dihydrochloride 0.5 MG 1 tab let Orally Once a day Active triamcinolone acetonide 1 mg/ml topical cream (1 source) Corticosteroid Start: 07-05-2024 Triamcinolone Acetonide Active 1 APPLIC TOPICAL Twice daily July 05, 2024 12:00am Problems Problem Classification Problem Date Documented Date Episodic/Chronic Chronic obstructive pulmonary disease and bronchiectasis (18 sources) Simple chronic bronchitis; Translations: [Simple chronic bronchitis] Onset: 02-12-2023 Chronic Congestive heart failure; nonhypertensive (12 sources) Chronic systolic heart failure; Translations: [Chronic systolic (congestive) heart failure] Onset: 12-22-2023 Chronic Diabetes mellitus with complications (20 sources) Type 2 diabetes mellitus; Translations: [Type 2 diabetes mellitus with hyperglycemia] Onset: 02-08-2023 Chronic Disorders of lipid metabolism (2 sources) Hyperlipidemia; Translations: [Hyperlipidemia, unspecified] 07-05-2024 Chronic Essential hypertension (12 sources) Essential hypertension; Translations: [Essential (primary) hypertension] Onset: 06-22-2024 Chronic Heart valve disorders (9 sources) Nonrheumatic aortic (valve) stenosis; Translations: [Moderate aortic stenosis] Chronic Noninfectious gastroenteritis (1 source) Noninfective gastroenteritis and colitis, unspecified Episodic Osteoarthritis (1 source) Arthritis; Translations: [Unspecified osteoarthritis, unspecified site] 07-05-2024 Chronic Other nervous system disorders (19 sources) Polyneuropathy; Translations: [Other specified polyneuropathies] Chronic Other nervous system disorders (1 source) Other specified polyneuropathies Chronic Spondylosis; intervertebral disc disorders; other back problems (1 source) Spinal stenosis, lumbar region without neurogenic claudication Episodic Results Test Name Value Interpretation Reference Range Facil ity Office Visiton 03-09-2024 Follow-up visit [id number] Claribel Johnson 1935 Provider Department Center 03/09/2024 3848ALPHONSO FLORES RIRI Sy Family History Problem Relation Age of Onset Heart failure Mother Congenital heart disease Brother Other Brother Family Status - Relation Status Age at Mother Brother Level of Service:70816 MT OFFICE/OUTPATIENT ESTABLISHED LOW MDM 20 MIN [facility] Office Visiton 12-22-2023 Follow-up visit [id number] Claribel Johnson 1935 Provider Department Center 12/22/2023 SHEMAR WEBBER Family History Problem Relation Age of Onset Heart failure Mother Congenital heart disease Brother Other Brother Family Status - Relation Status Age at Mother Brother Level of Service:23706 MT OFFICE/OUTPATIENT ESTABLISHED MOD MDM 30 MIN Reason for Visit and Comments: Congestive Heart Failure [127] Hypertension [158048] Normal [facility] 37on 11-23-2023 37 *Alternate your lasix, take 1 tablet every other day and 2 tablets every other day *Have lab work done in 1-2 weeks *Take the antibiotic prescribed until it runs out. If the redness and warmth does not improve, follow-up with Dr. Lorna Moody [facility] Office Visiton 11-23-2023 Follow-up visit [id number] Claribel Johnson 1935 Date Provider Department Center 11/23/2023 SHEMAR WEBBER CARD [facility] Family History Problem Relation Age of Onset Heart failure Mother Congenital heart disease Brother Other Brother Family Status - Relation Status Age at Mother Brother Level of Service:66269 MT OFFICE/OUTPATIENT ESTABLISHED MOD MDM 30 MIN Reason for Visit and Comments: Congestive Heart Failure [127] Valve Disorder [3372] Normal [facility] Office Visiton 10-21-2023 Follow-up visit [id number] ElizabethClaribel E 1935 F Date Provider Department Center 10/21/2023 ALPHONSO ROCHA CARD [facility] Family History Problem Relation Age of Onset Heart failure Mother Congenital heart disease Brother Other Brother Family Status - Relation Status Age at Mother Brother Level of Service:50409 MT OFFICE/OUTPATIENT NEW MODERATE MDM 45 MINUTES Normal [facility] Orders Onlyon 10-21-2023 Orders Only [id number] Mar Johnsonn E 1935 F Date Provider Department Center 10/21/2023 MICHAEL READ CARD [facility] Family History Problem Relation Age of Onset Heart failure Mother Congenital heart disease Brother Other Brother Family Status - Relation Status Age at Mother Brother Normal [facility] GLYCOHEMOGLOBIN A1Con 2022 ADA RECOMMENDATION SEE BELOW Normal [facility] Comment on above: Result Comment: ADA RECOMMENDED LIMIT 4.0 - 6.0 ADA THERAPEUTIC TARGET < 7.0 ACTION SUGGESTED > 7.0 Performed By: #### A 1C #### [facility] [address] [address] [address] Raj Joel Glucose [Mass/Vol] 163 mg/dL Normal [facility] Comment on above: Performed By: #### A 1C #### [facility] [address] [address] [address] Raj Joel HbA1c (Bld) [Mass fraction] 7.3 % Critically high 4.5-6.2 [facility] Comment on above: Performed By: #### A 1C #### [facility] [address] [address] [address] Raj Joel PROF 14(COMP METB)on 04-25-2 023 Albumin [Mass/Vol] 3.2 g/dL Critically low 3.4-5.0 Th e [facility] Comment on above: Performed By: #### C MP #### [facility] [address] [place] [address] Dr. Raj Joel Albumin/Globulin [Mass ratio] 0.8 {ratio} Normal [facility] Comment on above: Performed By: #### C MP #### [facility] [address] [address] [address] Raj Joel ALP [Catalytic activity/Vol] 101 U/L Normal 46-116 [facility] Comment on above: Performed By: #### C MP #### [facility] [address] [place] [address] Dr. Raj Joel ALT [Catalytic activity/Vol] 21 U/L Normal 14-59 [facility] Comment on above: Performed By: #### C MP #### [facility] [address] [place] [address] Dr. Raj Joel Anion gap [Moles/Vol] 9.6 mmol/L Normal [facility] Comment on above: Performed By: #### C MP #### [facility] [address] [place] [address] Dr. Raj Joel AST [Catalytic activity/Vol] 12 U/L Critically low 15-37 [facility] Comment on above: Performed By: #### C MP #### [facility] [address] [place] [address] Dr. Raj Joel Bilirubin [Mass/Vol] 0.4 mg/dL Normal 0.2-1.0 [facility] Comment on above: Performed By: #### C MP #### [facility] [address] [place] [address] Dr. Raj Joel Calcium [Mass/Vol] 9.4 mg/dL Normal 8.5-10.1 [facility] Comment on above: Performed By: #### C MP #### [facility] [address] [place] [address] Dr. Raj Joel Chloride [Moles/Vol] 105 mmol/L Normal 98-107 [facility] Comment on above: Performed By: #### C MP #### [facility] [address] [address] [address] Raj Joel CO2 [Moles/Vol] 33.9 mmol/L Critically high 21.0-32.0 [facility] Comment on above: Performed By: #### C MP #### [facility] [address] [address] [address] Raj Joel Creatinine [Mass/Vol] 0.85 mg/dL Normal 0.55-1.02 [facility] Comment on above: Performed By: #### C MP #### [facility] [address] [address] [address] Raj Joel EGFR-AF ENGLISH >60 Normal >=60 [facility] Comment on above: Performed By: #### C MP #### [facility] [address] [address] [address] Raj Joel EGFR-NON AF ENGLISH >60 Normal >=60 [facility] Comment on above: Performed By: #### C MP #### [facility] [address] [address] [address] Raj Joel Globulin (S) [Mass/Vol] 4.1 g/dL Normal [facility] Comment on above: Performed By: #### C MP #### [facility] [address] [address] [address] Raj Joel Glucose [Mass/Vol] 119 mg/dL Critically high 74-[address] [facility] Comment on above: Performed By: #### C MP #### [facility] [address] [address] [address] Raj Joel Potassium [Moles/Vol] 4.5 mmol/L Normal 3.5-5.1 [facility] Comment on above: Performed By: #### C MP #### [facility] [address] [address] [address] Raj Joel Protein [Mass/Vol] 7.3 g/dL Normal 6.4-8.2 [facility] Comment on above: Performed By: #### C MP #### [facility] [address] [place], [place] [address] Dr. Raj Joel Sodium [Moles/Vol] 144 mmol/L Normal 136-145 [facility] Comment on above: Performed By: #### C MP #### [facility] [address] [address] [address] Raj Joel Urea nitrogen [Mass/Vol] 21.0 mg/dL Critically high 7.0-18.0 [facility] Comment on above: Performed By: #### C MP #### [facility] [address] [address] [address] Raj Joel Urea nitrogen/Creatinine [Mass ratio] 24.7 mg/mg Normal [facility] Comment on above: Performed By: #### C MP #### [facility] [address] [address] [address] Raj Joel Vital Signs Date Time Vital Sign Value Performing Clinician Facility 07-05-2024 14:10-0400 Body height 139.7 cm [facility] 07-05-2024 14:10-0400 Body mass index (BMI) [Ratio] 37.8 kg/m2 [facility] 07-05-2024 14:10-0400 Body weight 73.93 kg [facility] 07-05-2024 14:10-0400 Diastolic blood pressure 67 mm[Hg] [facility] 07-05-2024 14:10-0400 Heart rate 91 /min [facility] 07-05-2024 14:10-0400 Systolic blood pressure 117 mm[Hg] [facility] 09-05-2023 11:45-0500 Body height 139.7 cm Daiana Rothman Other [email or web address] Other 09-05-2023 11:45-0500 Body mass index (BMI) [Ratio] 39.28 kg/m2 Daiana Rothman Other [email or web address] Other 09-05-2023 11:45-0500 Body weight 76.66 kg Daiana Rothman Other [email or web address] Other 09-05-2023 11:45-0500 Diastolic blood pressure 80 mm[Hg] Daiana Rothman Other [email or web address] Other 09-05-2023 11:45-0500 Systolic blood pressure 142 mm[Hg] Daiana Rothman Other [email or web address] Other 02-08-2023 15:39-0400 Body height 139.7 cm Daiana Rothman Other [email or web address] Other 12-27-2022 15:00-0400 Body height 139.7 cm Daiana Rothman Other [email or web address] Other 12-27-2022 15:00-0400 Body mass index (BMI) [Ratio] 40.67 kg/m2 Daiana Rothman Other [email or web address] Other 12-27-2022 15:00-0400 Body weight 79.38 kg Daiana Rothman Other [email or web address] Other 12-27-2022 15:00-0400 Diastolic blood pressure 78 mm[Hg] Daiana Rothman Other [email or web address] Other 12-27-2022 15:00-0400 Systolic blood pressure 128 mm[Hg] Daiana Rothman Other [email or web address] Other Encounters Encounter Date Encounter Type Care Provider Facility Start: 07-05-2024 End: 07-05-2024 ambulatory [facility] Work Phone: Start: 07-05-2024 End: 07-05-2024 Patient encounter procedure [facility] Work Phone: Start: 06-22-2024 End: 06-22-2024 [facility] Start: 03-09-2024 End: 03-09-2024 ambulatory [facility] Start: 12-22-2023 End: 12-22-2023 ambulatory [facility] Start: 11-23-2023 End: 11-23-2023 ambulatory [facility] Start: 11-01-2023 End: 11-01-2023 ambulatory Daiana Lorna Other [email or web address] Other Start: 11-01-2023 Telephone encounter Daiana Lorna [facility] Start: 10-26-2023 End: 10-26-2023 ambulatory Daiana Lorna Other [email or web address] Other Start: 10-26-2023 Telephone encounter Daiana Lorna [facility] Start: 10-21-2023 End: 10-21-2023 ambulatory [facility] Start: 09-14-2023 End: 09-14-2023 ambulatory Daiana Lorna Other [email or web address] Other Start: 09-14-2023 Telephone encounter Daiana Lorna [facility] Start: 09-05-2023 End: 09-05-2023 ambulatory Daiana Rothman Other [email or web address] Other Start: 09-05-2023 Office outpatient visit 25 minutes Daiana Lorna [facility] Start: 08-24-2023 End: 08-24-2023 ambulatory Leonora Beckham Other [email or web address] Other Start: 08-24-2023 Telephone encounter Leonora HERRERA [employer] Start: 08-18-2023 End: 08-18-2023 ambulatory Daiana Lorna Other [email or web address] Other Start: 08-18-2023 Telephone encounter Daiana Lorna [facility] Start: 08-03-2023 End: 08-03-2023 ambulatory Daiana Rothman Other [email or web address] Other Start: 08-03-2023 Telephone encounter Daiana Rothman [facility] Start: 07-25-2023 End: 07-25-2023 ambulatory Daiana Rothman Other [email or web address] Other Start: 07-25-2023 Telephone encounter Daiana Rothman [facility] Start: 02-08-2023 End: 02-09-[address] DAIANA ROTHMAN [email or web address] Other Start: 02-08-2023 Telephone encounter Daiana Rothman [facility] Start: 01-07-2023 End: 01-07-2023 ambulatory Daiana Rothman Other [email or web address] Other Start: 01-07-2023 Telephone encounter Daiana Rothman [facility] Start: 12-27-2022 End: 12-27-2022 ambulatory Daiana Rothman Other [email or web address] Other Start: 12-27-2022 Office outpatient ne w 30 minutes Daiana Rothman [facility] Plan of Treatment Date Care Activity Detail Author Comprehensive metabo lic 2000 panel - Serum or Plasma [facility] enter Microalbumin [Mass/volume] in Urine [facility] Payers Date Payer Category Payer [facility] [id number] 1960 Medicare [id number] [id number] 1935 Unknown [id number] 1935 Unknown [id number] Social History Date Type Detail Facility Unknown if ever smoked [email or web address] Other Sex Assigned At Sex Assigned At Bir th [facility] Other Start: 1935 Sex Assigned At Female Nadia [facility] Clinical Notes 12-27-2022 to 03-09-2024 Note Date & Type Note Facility 03-09-2024 Note Cardiovascular Medic in[facility] SUBJECTIVE No chief complaint on file. Claribel Johnson is a 88 y.o. female here for follow-up. HPI PMHx: diastolic heart failure, moderate aortic stenosis, COPD on supplemental O2, chronic BLE edema, neuropathy, DM type II Patient here for 2 mo follow up HFpEF and hypertension. Caitlin Holcomb CNP started her on Farxiga at last apt in December 2023. Follow up BMP has not been completed yet. She has lost 10# since then. Overall, she is doing well. She denies chest pain and palpitations. LE edema has improved. SOB has improved. No new complaints or concerns. Her LE swelling and redness has improved. Her breathing is the same. She gets worsened SOB when she mouth breaths. She does have some orthopnea. Her weight is up 2# since last seen. She admits she likes to eat sweets. She denies CP, PND, palpitations, syncope. Patient Active Problem List Diagnosis Benign hypertensive heart disease with heart failure ([facility]) Diabetes mellitus type II, non insulin dependent ([facility]) Chronic diastolic heart failure ([facility]) Hyperlipidemia Nonrheumatic aortic valve stenosis Past Medical History: Diagnosis Date CHF (congestive heart failure) ([facility]) COPD (chronic obstructive pulmonary disease) ([facility]) Diabetes mellitus type II, non insulin dependent ([facility]) 11/30/2023 Heart valve disease Hyperlipidemia Family History Problem Relation Name Age of Onset Heart failure Mother Congenital heart disease Brother Other (cabg) Brother Social History Tobacco Use Smoking status: Former Types: Cigarettes Quit date: 1968 Years since quittin.5 Smokeless tobacco: Never Substance Use Topics Alcohol use: Yes Comment: occasional No Known Allergies ROS Cardiovascular: Positive for dyspnea on exertion. Respiratory: Positive for cough and shortness of breath. Skin: Positive for dry skin. Musculoskeletal: Positive for falls. Neurological: Positive for light-headedness, loss of balance and numbness. All other systems reviewed and are negative. OBJECTIVE Visit Vitals BP 142/78 (BP Location: Right arm, Patient Position: Sitting) Pulse 74 Ht 1.397 m (4' 7 ) Wt 75.3 kg (166 lb) SpO2 92% BMI 38.58 kg/m??? Smoking Status Former BSA 1.71 m??? Medications: Current Outpatient Medications: atorvastatin (Lipitor) 10 mg tablet, 10 mg 1 (one) time each day., Disp: , Rfl: dapagliflozin propanediol (Farxiga) 10 mg, Take 1 tablet (10 mg) by mouth in the morning., Disp: 30 tablet, Rfl: 0 doxepin (SINEquan) 50 mg capsule, , Disp: [...] 90 mcg/actuation inhaler, , Disp: , Rfl: Physical Exam Vitals reviewed. [...] Technically difficult study with poor sound transmission. ASSESSMENT/PLAN: #Acute on chronic HFpEF -She has done well since starting (more content not included)... [facility] 12-22-2023 Note Cardiovascular Medic [facility] SUBJECTIVE Chief Complaint Patient presents with Congestive Heart Failure Hypertension Claribel Johnson is a 88 y.o. female here for [...] History: Diagnosis Date CHF (congestive heart failure) ([facility]) COPD (chronic obstructive pulmonary disease) ([facility]) Diabetes mellitus type II, non insulin dependent ([facility]) 11/30/2023 Heart valve disease Hyperlipidemia Family History Problem Relation Name Age of Onset Heart failure Mother Congenital heart disease Brother Other (cabg) Brother Social History Tobacco Use Smoking status: Former Types: Cigarettes Quit date: 1967 Years since quittin.2 Smokeless tobacco: Never Substance [...] study with p (more content not included)... [facility] 12-22-2023 Note Patient here for 1 m [...] All other systems reviewed and are negative. [facility] 11-23-2023 Note Patient here for 1 m [...] All other systems reviewed and are negative. [facility] 11-23-2023 Note Cardiovascular Medic [facility] SUBJECTIVE Chief Complaint Patient presents with Congestive Heart Failure Valve Disorder Claribel Johnson is a 88 y.o. female here for [...] History: Diagnosis Date CHF (congestive heart failure) (CMS/HCC) COPD (chronic obstructive pulmonary disease) (CMS/HCC) Diabetes mellitus type II, non insulin dependent (CMS/HCC) 11/30/2023 Heart valve disease Hyperlipidemia Family History [...] sound transmission. ASSESSMENT/PL (more content not included)... [facility] 10-21-2023 Note New patient here to establish care. Ref from Dr. Rothman for chronic congestive heart failure. She denies chest pain. Has SOB (COPD on O2) and LE edema. She often gets water blisters on her LE. Was admitted to [facility] in Aug 2023 for respiratory failure. She thinks echo was done for CHF but report not found. Says her only issue is SOB. [facility] 10-21-2023 Note Cardiology Clinic No te Chief Complaint: congestive heart failure HPI: Claribel Johnson is a 87 y.o. female with a [...] medical history of CHF (congestive heart failure) ([facility]) and COPD (chronic obstructive pulmonary disease) ([facility]). Surgical History She has a past [...] Strict return preca (more content not included)... [facility] 09-14-2023 Evaluation note Encounter Date Diagnosis Assessment Notes Aug, Chronic systolic congestive heart failure (ICD-10 - I50.22) [email or web address] Other 11-20-2023 Evaluation note* Encounter Date Diagnosis [...] Will followup w Dr. Weber on 09/14. [email or web address] Other 10-18-2023 Evaluation note* Encounter Date Diagnosis Assessment Notes Treatment Notes Treatment Clinical Notes Jul, Chronic systolic congestive heart failure (ICD-10 - I50.22) Jul, Moderate aortic stenosis (ICD-10 - I35.0) [email or web address] Other 04-25-2023 NotePROCEDURE: XR CHEST 2 V [...] by: SHAY CHAVEZ Date: 2023-02-08 14:31[facility]04-25-2023 Evaluation note* Encounter Date Diagnosis Assessment Notes Treatment Notes Treatment Clinical Notes Jan, Type 2 diabetes mellitus with hyperglycemia, unspecified whether manager terminal insulin use (ICD-10 - E11.65) [email or web address] Other 03-13-2023 Evaluation note* Encounter Date Diagnosis [...] improvement in past - will monitor symptoms. [email or web address] Other Evaluation noteNo [email or web address] Other Evaluation note* Diagnosis Onset Date Resolution Status Essential (primary) hypertension acute Hyperlipidemia acute Type 2 diabetes mellitus with hyperglycemia acute [facility] Work Phone: [facility]dom[facility] general Narrative - Reported* Type Description Date [...] 1974 Surgical History Right hand surgery 1994 [email or web address] Other History general Narrative - Reported* Type [...] History Right hand surgery 1994 Hospitalization History [facility] 08/2023 [email or web address] Other Summary Purpose Family History Relationship Condition Age at Onset Recorded Date/T jolene father Unknown mother Unknown Diabetes mellitus Unknown Heart disease Unknown Advance Directives Advance Directive Response Recorded Date/ Time Advance Directives No June 1:46pm Reason for Referral Reason * 09/23 [place] office - heart failure. 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.22) Referral Organization [facility] [employer] Referring Provider First Name Daiana Referring Provider Last Name Lorna Referring Provider Specialty [facility] Referred Organization [facility] Referred Address [address] [place],[address] Referred Provider Specialty Cardiology Referral Priority Routine General Notes Mary Holman 01:24:39 PM >received today, attachments made, notes locked, referral faxed to [place] office Clinical Notes f: [phone] Reason *Waiting for appt Admitted for CHF at [facility], will get records. She cancelled appt w Dr. Leonora Beckham when she was d/c from hospital. (She was confused on followup) She agrees now to see her. 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.22) Referral Organization [facility] Referring Provider First Name Daiana Referring Provider Last Name Lorna Referring Provider Specialty [facility] [employer] Referred Organization [facility] Cardiology Referred Provider Leonora Bekcham Referred Address [address],[place], [id number] Referred Provider Specialty Cardiovascul ar Disease Referral Priority Routine General Notes Mary Holman 12:53:16 PM >received today, faxed P2P Reason *Waiting for appt Echo and last 2 OV - LE edema. 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.22) Referral Organization [facility] [employer] Referring Provider First Name Daiana Referring Provider Last Name Lorna Referring Provider Specialty [facility] Referred Organization [facility] Cardiology Referred Provider Leonora Beckham Referred Address [address] [place] [address],[facility] [address],[place], [id number] Referred Provider Specialty Cardiovascul ar Disease Referral Priority Routine General Notes Mary Holman 01:17:28 PM >received today, sent P2P Chief Complaint and Reason for Visit Chief Complaint Annual Reason for Visit Essential (primary) hypertension Hyperlipidemia Type 2 diabetes mellitus with hyperglycemia Additional Source Comments REASON FOR VISIT (unrecogniz ed section and content) new patient CHECK UPcheck on symptomsNo Informationrefillecho and labsRefillCARDIO UPDATETBHmessagerefillRefill INFORMATION SOURCE (unrecogn ized section and content) DATE CREATED AUTHOR 02/12/2023 [facility] DATE CREATED AUTHOR AUTHOR'Meliton PÉREZ 06/24/2024 [facility] Teams (unrecognized sec tion and content) Team Status: Active Member Role Status Dates Daiana Rothman MD Primary Care Provider Active Team Status: Inactive Member Role Status Dates Daiana Rothman MD Primary Care Provide r, Attending Provider Active Start: July 05, 2024 End: July 05, 2024 Goals (unrecognized section and content) Goals may be documented in a n alternate section FOR RECORDS PERTAINING TO PATIENTS WHO ARE [...] BE BASED ON THE PRIMARY CLINICAL RECORDS. [facility]. provides no warranty or guarantee of the accuracy or completeness of information in this document.
[2024-07-11 11:10] LABS: Basophils Absolute Auto 0.1 10^3/uL (0.0-0.1); Basophils Percent Auto 0.9 % (0.2-2.0); Eosinophils Absolute Auto 0.5 10^3/uL (0.0-0.7); Eosinophils Percent Auto 4.9 % (0.9-7.0); Hematocrit 45.1 % (36.0-48.0); Hemoglobin 13.8 g/dL (12.0-16.0); Immature Granulocytes Abs Auto 0.02 10^3/uL (0.00-0.03); Immature Granulocytes Pct Auto 0.2 % (0.0-0.5); Lymphocytes Absolute Auto 1.8 10^3/uL (1.2-3.8); Lymphocytes Percent Auto 16.8 % (20.5-60.0); Mean Corpuscular HGB Conc 30.6 g/dL (29.9-35.2); Mean Corpuscular Hemoglobin 28.7 pg (26.7-34.0); Mean Corpuscular Volume 93.8 fL (81.0-99.0); Mean Platelet Volume 10.2 fL (9.5-13.5); Monocytes Absolute Auto 0.8 10^3/uL (0.3-0.8); Monocytes Percent Auto 7.5 % (1.7-12.0); Neutrophils Absolute Auto 7.3 10^3/uL (1.4-6.5); Neutrophils Percent Auto 69.7 % (43.0-75.0); Platelet Count 318 10^3/uL (150-450); Red Blood Count 4.81 10^6/uL (4.20-5.40); Red Cell Distribution Width 13.4 % (11.0-15.0); White Blood Count 10.4 10^3/uL (4.0-11.0)
[2024-07-11 11:23] LABS: Microalbumin Urine Random <1.3 mg/dL (<=30.0)
[2024-07-11 11:24] LABS: Estimated Average Glucose 154 mg/dL
[2024-07-11 11:33] LABS: Alanine Aminotransferase 16 U/L (14-59); Albumin Globulin Ratio 0.9; Albumin Level 3.5 g/dL (3.4-5.0); Alkaline Phosphatase 104 U/L (46-116); Anion Gap 7.9; Aspartate Amino Transferase 10 U/L (15-37); BUN Creatinine Ratio 25.3; Bilirubin Total 0.5 mg/dL (0.2-1.0); Calcium 9.3 mg/dL (8.5-10.1); Carbon Dioxide 32.5 mmol/L (21.0-32.0); Chloride 103 mmol/L (98-107); Estimated GFR (African America >60 (>=60); Estimated GFR (Non-African Ame 55 (>=60); Globulin 3.8 g/dL; Glucose 107 mg/dL (74-106); Potassium 4.4 mmol/L (3.5-5.1); Sodium 139 mmol/L (136-145); Total Protein 7.3 g/dL (6.4-8.2)
[2024-07-11 11:40] LABS: Chol HDL Ratio 3.8; Cholesterol 280 mg/dL (<=200); HDL Cholesterol 73 mg/dL (40-60); Thyroid Stimulating Hormone 2.546 uIU/mL (0.358-3.740); Triglycerides 170 mg/dL (<=150)
== END 2024-07-11 10:25 | disposition home or self-care (01) ==
LOC: LAB 10:25
PROVIDERS: PCP Family Medicine; Visit Provider Family Medicine
DX: E78.5 Hyperlipidemia, unspecified (principal); E11.65 Type 2 diabetes mellitus with hyperglycemia; I10 Essential (primary) hypertension
CPT/HCPCS: 36415; 80053; 80061; 82043; 83036; 84443; 85025